=== PATIENT | male | born 1955 | race Caucasian/White ===

== ENCOUNTER 2017-08-28 13:11 | Inpatient (IN) | payer OTHER ==
[~2017-08-28] VITALS: Ht 180.3 cm; Wt 79.4 kg
--- NOTE | 2017-08-28 00:30 | NUR ---
DUE MEDICATION GIVEN, PT TOLERATED WELL, NO DISTRESS NOTED, CALL LIGHT WITHIN REACH, WILL CONTINUE TO MONITOR. Addendum: 08/29/17 at 0513 by Arleth Stewart RN WRONG DATE
[2017-08-28 13:19] VITALS: BP 156/77
--- NOTE | 2017-08-28 13:34 | NUR ---
PT PLACED IN BED 1 BY EMS.
--- NOTE | 2017-08-28 13:40 | NUR ---
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 DENIES N/V/D; SKIN IS PINK/WARM/DRY; AAOX4 WITH EVEN AND STEADY GAIT; LUNGS CLEAR BL; HR EVEN AND REGULAR; PT DENIES ANY FEVER, CP, SOB, OR COUGH AT THIS TIME; PATIENT STATES PAIN OF 5/10 AT THIS TIME; VSS; PATIENT POSITIONED FOR COMFORT; HOB ELEVATED; BEDRAILS UP X2; BED DOWN. ER MD MADE AWARE OF PT STATUS.
[2017-08-28] MEDS ORDERED: MORPHINE SULFATE 4 MG/ML SYR IVP ONE (14:30)
[2017-08-28] MEDS ORDERED: AMPICILLIN/SULBACTAM 3 GM in NACL 0.9% 100 ML IV ONE (14:30)
[2017-08-28] MEDS ORDERED: ONDANSETRON 4 MG/2 ML VIAL IVP ONE (14:50)
[2017-08-28 14:52] LABS: BASOPHILS # (AUTO) 0.1 K/uL (0.00-0.22); BASOPHILS % (AUTO) 1.1 % (0.0-2.0); EOSINOPHILS # (AUTO) 0.3 K/uL (0-0.4); EOSINOPHILS % (AUTO) 4.5 % (0.0-4.0); HEMATOCRIT 34.1 % (36-52); HEMOGLOBIN 11.7 g/dL (12.0-18.0); LYMPHOCYTES # (AUTO) 1.4 K/uL (2.0-11.5); LYMPHOCYTES % (AUTO) 18.1 % (20.5-51.1); MEAN CORPUSCULAR HEMOGLOBIN 34 pg (27-31); MEAN CORPUSCULAR HGB CONC 34 g/dL (33-37); MEAN CORPUSCULAR VOLUME 98 fL (80-94); MONOCYTES # (AUTO) 0.5 K/uL (0.8-1.0); NEUTROPHILS # (AUTO) 5.2 K/uL (1.8-7.7); NEUTROPHILS % (AUTO) 69.3 % (42.2-75.2); PLATELET COUNT (AUTO) 245 K/uL (140-450); RED BLOOD CELL COUNT(AUTO) 3.49 MIL/uL (4.20-6.10); RED CELL DISTRIBUTION WIDTH 12.2 % (11.6-13.7); WHITE BLOOD COUNT (AUTO) 7.5 K/uL (4.8-10.8)
[2017-08-28 14:56] LABS: ANION GAP 12.2 (8-16); CARBON DIOXIDE 23.6 mmol/L (21-32); CREATININE 1.5 mg/dL (0.7-1.3); POTASSIUM 3.8 mmol/L (3.5-5.1)
[2017-08-28 15:03] LABS: ALBUMIN 2.3 g/dL (3.4-5.0); TOTAL BILIRUBIN 0.4 mg/dL (0.0-1.0)
[2017-08-28] MEDS ORDERED: ONDANSETRON 4 MG/2 ML VIAL IM/IVP PRN (15:50)
[2017-08-28] MEDS ORDERED: HYDROcodone/APAP 7.5/325 MG 1 TAB PO PRN (15:50)
[2017-08-28] MEDS ORDERED: DOCUSATE SODIUM 100 MG GELCAP PO PRN (15:50)
[2017-08-28] MEDS ORDERED: ACETAMINOPHEN 325 MG TAB PO PRN (15:50)
--- NOTE | 2017-08-28 16:00 | NUR ---
PT STAYING QUIETLY IN BED. DENIES PAIN AT THIS TIME.
[2017-08-28] MEDS: NACL 0.9% 1,000 ML IV SCH (16:39)
[2017-08-28 16:59] LABS: CHOL/HDL RATIO 2.8 (1-4.5); FREE T4 (FREE THYROXINE) 0.99 ng/dL (0.76-1.46); MAGNESIUM 1.8 mg/dL (1.8-2.4); PHOSPHORUS 3.1 mg/dL (2.5-4.9); THYROID STIMULATING HORMONE 2.88 uIU/mL (0.34-3.74)
--- NOTE | 2017-08-28 18:00 | NUR ---
PT TRANSFERRED TO TELE 105B WITH STABLE VITALS.
[2017-08-28 19:30] VITALS: BP 116/76
--- NOTE | 2017-08-28 19:30 | NUR ---
RECEIVED REPORT FROM DAY SHIFT NURSE TODD RN, PT STABLE, NO DISTRESS NOTED, PT ARRIVED AT THE UNIT FROM ED AT 1817. IV TO L AC 20 G RUNNING NS, INFUSING WELL, PT ON ROOM AIR, NO SOB, REPORTED HAVING PAIN 10/10 ON LEGS, WILL MEDICATE, CALL LIGHT WITHIN REACH, INITIAL ASSESSMENT DONE, ALL SAFETY PRECAUTION MET, WILL CONTINUE TO MONITOR.
[2017-08-28] MEDS: MORPHINE SULFATE 2 MG/ML SYR IVP PRN (19:55)
[2017-08-28 21:42] LABS: PROTHROMBIN TIME 9.4 secs (10.8-13.4)
[2017-08-28] MEDS: QUEtiapine FUMARATE 25 MG TAB PO SCH (22:08)
--- NOTE | 2017-08-28 22:08 | NUR ---
DUE MEDICATION GIVEN, PT TOLERATED WELL, NO DISTRESS NOTED, WILL CONTINUE TO MONITOR.
[2017-08-28] MEDS: INSULIN LISPRO SLIDING SCALE 100 UNITS/ML VIAL SUBQ PRN (22:40)
[2017-08-29] VITALS: BP 158/79
[2017-08-29] MEDS: AMPICILLIN/SULBACTAM 3 GM in NACL 0.9% 100 ML IV SCH ×2 (00:30→05:19)
--- NOTE | 2017-08-29 00:30 | NUR ---
DUE MEDICATION GIVEN, PT TOLERATED WELL, NO DISTRESS NOTED, SLEEPING, CALL LIGHT WITHIN REACH, WILL CONTINUE TO MONITOR.
--- NOTE | 2017-08-29 03:19 | NUR ---
TALKED TO DR. DEAN REGARDING PT ECG READING OF 2ND DEGREE HEART BLOCK IRIS RIDDLE ON TELE MONITORING, PT STABLE, SLEEPING, NO DISTRESS NOTED. DR STATED UNDERSTANDING, WENT TO SEE ECG AND TELE MONITOR, SAW PT ALSO HAD AN EPISODE OF BRADYCARDIA ON TELE MONITOR. STATED THAT HE WOULD PUT IN ORDERS. WILL CONTINUE WITH ORDERS.
[2017-08-29 04:00] VITALS: BP 141/67
--- NOTE | 2017-08-29 05:19 | NUR ---
DUE MEDICATION GIVEN, PT TOLERATED WELL, NO DISTRESS NOTED, CALL LIGHT WITHIN REACH, WILL CONTINUE TO MONITOR.
[2017-08-29 06:19] LABS: T4 (THYROXINE) 6.1 ug/dL (4.5-12.0)
[2017-08-29] MEDS: BLOOD GLUCOSE MONITORING 1 DEV DEV FS SCH ×4 (06:21→20:48)
[2017-08-29 07:20] LABS: ANION GAP 12.5 (8-16); CARBON DIOXIDE 23.1 mmol/L (21-32); CREATININE 1.6 mg/dL (0.7-1.3); POTASSIUM 3.6 mmol/L (3.5-5.1)
--- NOTE | 2017-08-29 07:25 | NUR ---
ENDORSED PLAN OF CARE TO DAY SHIFT NURSE MIGUEL A RN, PT STABLE, NO DISTRESS NOTED, CALL LIGHT WITHIN REACH.
--- NOTE | 2017-08-29 07:30 | NUR ---
RECEIVED PT ON BED AAOX4. NO SOB NOTED. NO C/O PAIN AT THIS TIME. IV TO LT AC PATENT AND INTACT. CHEST CLEAR, ABDOMEN SOFT, BOWEL SOUNDS PRESENT. PT WITH HX OF BILATERAL BKA, DX OF BLE CELLULITIS, NOTED ALL WOUNDS OF DIFFERENT SIZES ON BILATERAL LOWER EXTREMITY ARE DRY. ALL BLISTERS ARE NOTED INTACT, NO DRAINAGE. LEFTY LEG PROSTHESIS NOT WORN BY PT. RIGHT LEG PROSTHESIS IS IN PLACE. PER HOSTEL MANAGER, SOMEBODY FROM PT'S PROSTHESIS COMPANY IS COMING TODAY TO REMOVE THE RT PROSTHESIS PT AND DOCTORS WERE UNABLE TO REMOVE IT. INSTRUCTED PT TO CALL FOR ASSISTANCE, CALL LIGHT WITHIN REACH. PT VERBALIZED UNDERSTANDING.
[2017-08-29 08:00] VITALS: BP 152/81
[2017-08-29 08:39] LABS: HEMATOCRIT 33.2 % (36-52); HEMOGLOBIN 11.3 g/dL (12.0-18.0); RED BLOOD CELL COUNT(AUTO) 3.34 MIL/uL (4.20-6.10); WHITE BLOOD COUNT (AUTO) 6.5 K/uL (4.8-10.8)
[2017-08-29 08:40] LABS: BASOPHILS % (AUTO) 0.5 % (0.0-2.0); EOSINOPHILS # (AUTO) 0.3 K/uL (0-0.4); EOSINOPHILS % (AUTO) 5.3 % (0.0-4.0); LYMPHOCYTES # (AUTO) 1.4 K/uL (2.0-11.5); LYMPHOCYTES % (AUTO) 22.1 % (20.5-51.1); MEAN CORPUSCULAR HEMOGLOBIN 34 pg (27-31); MEAN CORPUSCULAR HGB CONC 34 g/dL (33-37); MEAN CORPUSCULAR VOLUME 99 fL (80-94); MONOCYTES # (AUTO) 0.4 K/uL (0.8-1.0); MONOCYTES % (AUTO) 6.4 % (1.7-9.3); NEUTROPHILS # (AUTO) 4.3 K/uL (1.8-7.7); NEUTROPHILS % (AUTO) 65.7 % (42.2-75.2); PLATELET COUNT (AUTO) 244 K/uL (140-450); RED CELL DISTRIBUTION WIDTH 13.1 % (11.6-13.7)
[2017-08-29] MEDS: NACL 0.9% 1,000 ML IV SCH (08:44)
[2017-08-29] MEDS: amLODIPine 5 MG TAB PO SCH (08:44)
[2017-08-29] MEDS: QUEtiapine FUMARATE 25 MG TAB PO SCH ×2 (08:45→20:49)
[2017-08-29] MEDS: MORPHINE SULFATE 2 MG/ML SYR IVP PRN ×5 (08:45→21:55)
[2017-08-29] MEDS: LACTOBACILLUS RHAMNOSUS GG 1 EACH CAP PO SCH (08:45)
--- NOTE | 2017-08-29 08:50 | NUR ---
PATIENT HAS BEEN SCREENED AND CATEGORIZED MODERATE NUTRITION RISK. PATIENT WILL BE SEEN WITHIN 3-5 DAYS OF ADMISSION. 08/30/17-09/01/[address]
[2017-08-29] MEDS ORDERED: LACTOBACILLUS RHAMNOSUS GG 1 EACH CAP PO SCH (09:00)
--- NOTE | 2017-08-29 10:00 | NUR ---
SONIA FROM [employer] [employer] ([phone]) CAME TO REMOVE PT'S RT LEG PROSTHESIS. PT TOLERATED PROCEDURE WELL. NO COMPLAINTS MADE. NO BLEEDING, NO DRAINAGE NOTED ON RT STUMP.
[2017-08-29 12:00] VITALS: BP 129/71
[2017-08-29] MEDS: CLINDAMYCIN 600 MG in DEXTROSE 5% 50 ML IV SCH ×3 (13:12→23:59)
[2017-08-29] MEDS: INSULIN LISPRO SLIDING SCALE 100 UNITS/ML VIAL SUBQ PRN (13:13)
--- NOTE | 2017-08-29 13:39 | NUR ---
NOTED ALL WOUNDS OF DIFFERENT SIZES ON BILATERAL LOWER EXTREMITY ARE DRY. PT TRIED TO SQUEEZE RT KNEE WOUND, VERY SMALL AMOUNT OF CLEAR DRAINAGE NOTED, SWABS TAKEN FOR CULTURE. ALL BLISTERS ARE STILL INTACT, NO DRAINAGE NOTED. CULTURE SWAB TAKEN FROM RT KNEE WOUND AND SENT TO LAB.
--- NOTE | 2017-08-29 15:00 | NUR ---
URINE SPECIMEN COLLECTED AND SENT TO LAB FOR UDS.
--- NOTE | 2017-08-29 16:00 | NUR ---
WOUND CARE NURSE HERE TO EVALUATE PT.
--- NOTE | 2017-08-29 16:19 | NUR ---
WOUND EVALUATION NOTE: REASON FOR WOUND EVALUATION: BLE BKA SKIN TEARS PT. REFUSED COMPLETE SKIN ASSESSMENT , ONLY WANTS THE LEGS/THIGHS TO BE SEEN. PT IS A 61 Y/O MALE ADMITTED TO [facility] WITH INITIAL DX OF LEGS PAIN. PAST MEDICAL HX INCLUDES DM, HTN, BI-POLAR AND BL BKA. LABS ARE WBC 6.5, H/H 11.2/33.2 AND GLUCOSE 226. PLAN OF CARE DISCUSSED WITH PT AND PRIMARY RN. PT. VERBALIZES UNDERSTAND. INTEGUMENTARY: BILATERAL THIGHS MULTIPLE DRY SKIN TEARS WITH BIGGEST ON RIGHT THIGH WITH 3.5X3CM AREA IS RED AND DRY LEFT STUMP DRY SOFT BROWN SCAB 3X1 CM WITH SURROUNDING TISSUE DARK BROWN IN COLOR RIGHT STUMP 2X1.5 CM RED IN COLOR, AREA IS DRY. RECOMMENDATIONS: -SURGEON CONSULT TO BILATERAL STUMPS -CLEANSE BILATERAL THIGHS DRY SKIN TEARS WITH NS. PAT DRY, APPLY XEROFORM DRESSING WRAP WITH KERLIX AND GREY BANDAGE Q7 DAYS AND PRN. -TURN AND REPOSITION PATIENT Q2H -ASSESS AND MONITOR SKIN CONDITION DURING POSITION CHANGE, PLEASE PAY ATTENTION TO BILATERAL STUMPS -KEEP SKIN CLEAN AND DRY AT ALL TIMES. -CONTINUE TO FOLLOW RD RECOMMENDATION RECOMMENDATIONS DISCUSSED WITH PRIMARY RN AND DR. ABEBE WILL FOLLOW UP PATIENT Q 7-10 DAYS AND PRN. PLEASE CONTACT WOUND CARE NURSE FOR ANY QUESTIONS AND CHANGES IN WOUND CONDITION.
[2017-08-29 17:26] LABS: BARBITURATE, URINE POS. ng/ml (NEG <=200); CANNABINOID, URINE NEG. ng/mL (NEG <=50); COCAINE, URINE NEG. ng/mL (NEG <=300); OPIATE, URINE POS. ng/mL (NEG <=2000); PHENCYCLIDINE SCREEN,URINE NEG. ng/mL (NEG <=25)
[2017-08-29 17:34] LABS: BENZODIAZEPINE, URINE NEG. ng/mL (NEG <=200)
[2017-08-29 17:56] LABS: APPEARANCE,URINE CLEAR (CLEAR); BILIRUBIN,URINE NEGATIVE (NEGATIVE); BLOOD, URINE TRACE-L (NEGATIVE); COLOR,URINE YELLOW (YELLOW); LEUKOCYTE ESTERASE ,URINE NEGATIVE (NEGATIVE); NITRITE, URINE NEGATIVE (NEGATIVE); UGLUCOSE 1+ (NEGATIVE)
[2017-08-29 18:29] LABS: RBC,URINE 0-5 (RARE) /HPF (0-5); WBC,URINE 0-5 (RARE) /HPF (0-5)
--- NOTE | 2017-08-29 18:57 | NUR ---
PT AWAKE, WATCHING TV. NO SOB NOTED. NO C/O PAIN AT THIS TIME. WILL ENDORSE TO NEXT SHIFT NURSE FOR CONTINUITY OF CARE.
--- NOTE | 2017-08-29 19:05 | NUR ---
RECD. RESTING IN BED, AWAKE, A/OX4. RESPIRATION EVEN AND UNLABORED, OF NS AT 60 ML/HR INFUSING, RIGHT AC G20. BILATERAL BKA, BOTH LEGS COVERED WITH KERLIX DRSG. DRY AND INTACT, LEFT BKA STUMP WITH DRY DRESSING, NOTED BLISTERS ON BILATERAL LE. SAFETY MEASURES ENFORCED. PLAN OF CARE FOR THE SHIFT DISCUSSED. VERBALIZED UNDERSTANDING. DENIES PAIN 0/10.
--- NOTE | 2017-08-29 19:30 | NUR ---
Patient's Plan of Care was discussed and reviewed with FLASK CARRIER: ED
--- NOTE | 2017-08-29 19:30 | NUR ---
LOTION APPLIED ON LOWER BACK X2 REQUESTED.
--- NOTE | 2017-08-29 20:49 | NUR ---
DUE PO MEDICATION GIVEN. SNACK GIVEN FOR THE NIGHT. CALLS FREQUENTLY, LIGHT PROMPTLY ANSWERED.
--- NOTE | 2017-08-29 22:30 | NUR ---
INFORMED DR. YUN PATIENT IS REQUESTING FOR BENADRYL FOR ITCHINESS, INFORMED MERCHANDISE BUYER AND NURSE APPLIED LOTION IN THE BACK AND STILL WANTING BENADRYL FOR ITCHINESS.
[2017-08-29] MEDS ORDERED: diphenhydrAMINE 50 MG CAP PO SCH (22:45)
--- NOTE | 2017-08-29 23:09 | NUR ---
STATED STILL WITH ITCHINESS, MEDICATED WITH BENADRYL 50 MG. PO ORDERED.
--- NOTE | 2017-08-29 23:45 | NUR ---
ASSISTED TO BR TO HAVE BM, APPLIED PROSTHESIS HIMSELF. ABLE TO HAVE MEDIUM SOFT BM. BACK TO BED, SAFETY MAINTAINED. STENCILER ASSISTED IN CLEANING PATIENT. APPLIED LOTION AT THE BACK REQUESTED.
--- NOTE | 2017-08-30 00:15 | NUR ---
KEEP ON CALLING, WANTS MORE BENADRYL, HOWARD TREVINO PUT LOTION AT THE BACK REQUESTED.
--- NOTE | 2017-08-30 00:25 | NUR ---
DR. JAVED CAME TO PATIENT'S ROOM AND SPOKE WITH PATIENT, WILL FOLLOW UP WITH ANY NEW ORDER.
[2017-08-30] MEDS: NACL 0.9% 1,000 ML IV SCH ×3 (01:07→22:54)
[2017-08-30 05:19] VITALS: BP 161/77
[2017-08-30] MEDS: MORPHINE SULFATE 2 MG/ML SYR IVP PRN ×3 (05:31→20:58)
--- NOTE | 2017-08-30 06:00 | NUR ---
CONDITION REMAIN STABLE. CALL LIGHTS PROMPTLY ANSWERED. STILL EXPRESS NOT SATISFIED WITH THE HELP HE IS GETTING FROM THE NURSES AND COURTROOM DEPUTY OR CALENDAR CLERK.
[2017-08-30 06:26] LABS: BASOPHILS # (AUTO) 0.1 K/uL (0.00-0.22); BASOPHILS % (AUTO) 0.8 % (0.0-2.0); EOSINOPHILS # (AUTO) 0.5 K/uL (0-0.4); HEMATOCRIT 32.7 % (36-52); LYMPHOCYTES # (AUTO) 1.2 K/uL (2.0-11.5); LYMPHOCYTES % (AUTO) 16.3 % (20.5-51.1); MEAN CORPUSCULAR HEMOGLOBIN 34 pg (27-31); MEAN CORPUSCULAR HGB CONC 34 g/dL (33-37); MEAN CORPUSCULAR VOLUME 100 fL (80-94); MONOCYTES # (AUTO) 0.5 K/uL (0.8-1.0); MONOCYTES % (AUTO) 6.3 % (1.7-9.3); NEUTROPHILS # (AUTO) 5.4 K/uL (1.8-7.7); NEUTROPHILS % (AUTO) 70.6 % (42.2-75.2); PLATELET COUNT (AUTO) 248 K/uL (140-450); RED BLOOD CELL COUNT(AUTO) 3.27 MIL/uL (4.20-6.10); RED CELL DISTRIBUTION WIDTH 12.3 % (11.6-13.7); WHITE BLOOD COUNT (AUTO) 7.7 K/uL (4.8-10.8)
[2017-08-30] MEDS: CLINDAMYCIN 600 MG in DEXTROSE 5% 50 ML IV SCH ×3 (06:26→18:22)
[2017-08-30 06:38] LABS: ANION GAP 11.7 (8-16); CARBON DIOXIDE 25.4 mmol/L (21-32); CREATININE 1.8 mg/dL (0.7-1.3); POTASSIUM 4.1 mmol/L (3.5-5.1)
[2017-08-30 06:43] LABS: MAGNESIUM 1.8 mg/dL (1.8-2.4); PHOSPHORUS 4.1 mg/dL (2.5-4.9)
--- NOTE | 2017-08-30 07:00 | NUR ---
CONDITION REMAIN STABLE. WILL ENDORSED TO AM NURSE FOR CONTINUITY OF CARE.
--- NOTE | 2017-08-30 07:01 | NUR ---
RECEIVED REPORT FROM GREENKEEPER NURSE. PATIENT WITH IV TO LFA 20G NS RUNNING AT 60ML/HR. PATIENT ON CONTACT ISOLATION FOR MRSA PER GREENKEEPER NURSE. PATIENT WITH BILAT BKA . DRESSINGS INTACT. NO C/O PAIN AT THIS TIME. NO ACUTE DISTRESS NOTED. WILL CONT TO MONITOR PT.
[2017-08-30] MEDS: BLOOD GLUCOSE MONITORING 1 DEV DEV FS SCH ×4 (07:08→20:59)
[2017-08-30] MEDS: LACTOBACILLUS RHAMNOSUS GG 1 EACH CAP PO SCH (08:41)
[2017-08-30] MEDS: QUEtiapine FUMARATE 25 MG TAB PO SCH ×2 (08:41→20:57)
[2017-08-30] MEDS: amLODIPine 5 MG TAB PO SCH (08:42)
--- NOTE | 2017-08-30 08:43 | NUR ---
ADMINISTERED SCHEDULED MORNING MEDICATIONS MORPHINE GIVEN FOR SEVERE PAIN. PATIENT ALERT AND ABLE TO VERBALIZE NEEDS. NO ACUTE DISTRESS NOTED. CALL LIGHT WITHIN REACH. WILL CONT TO MONITOR PT.
[2017-08-30] MEDS: HYDROCORTISONE 2.5% OINT 30 GM TUBE TP SCH ×2 (08:50→21:00)
[2017-08-30] MEDS ORDERED: ESCITALOPRAM 20 MG TAB PO SCH (09:14)
[2017-08-30] MEDS ORDERED: HYDROCHLOROTHIAZIDE 25 MG TAB PO SCH (09:17)
--- NOTE | 2017-08-30 09:57 | NUR ---
ADMINISTERED HCTZ AND LEXAPRO ORDERED PER MD . PT TOLERATED WELL. CALL LIGHT WITHIN REACH. WILL CONT TO MONITOR PT.
--- NOTE | 2017-08-30 10:46 | NUR ---
PT REQUESTED 2 PUDDINGS. UNABLE TO OPEN THE PACKAGE. NEEDED ASSISTANCE. ADMINISTERED A NEW IVF. TOLERATED WELL. MET ALL NEEDS AT THIS TIME. WILL CONTINUE TO MONITOR PT.
[2017-08-30] MEDS: INSULIN LISPRO SLIDING SCALE 100 UNITS/ML VIAL SUBQ PRN ×2 (11:52→16:46)
--- NOTE | 2017-08-30 12:46 | NUR ---
PT IN BED EATING MEAL. ALERT AND ABLE TO MAKE NEEDS KNOWN. NO ACUTE DISTRESS NOTED. NO C/O PAIN. CALL LIGHT WITHIN REACH. WILL CONT TO MONITOR PT.
--- NOTE | 2017-08-30 14:52 | NUR ---
PT LINENS CHANGED. PT WAS USING URINAL AND SOILED LINEN. GOOD PERICARE PROVIDED. PT CLEAN AND DRY IN BED WATCHING TV.
[2017-08-30 16:00] VITALS: BP 122/71
--- NOTE | 2017-08-30 16:06 | NUR ---
PT SLEEPING SOUNDLY. NO SIGNS OF DISTRESS. WILL CONTINUE TO MONITOR PT.
--- NOTE | 2017-08-30 19:20 | NUR ---
ENDORSED REPORT TO CHEMICAL PROCESSING TECHNICIAN NURSE FOR CONTINUITY OF CARE AT BEDSIDE.
--- NOTE | 2017-08-30 19:21 | NUR ---
PATIENT REPORT RECEIVED FROM MORNING NURSE AT BEDSIDE. PATIENT IS AWAKE, ALERT AND ORIENTED. NO SIGNS AND SYMPTOMS OF DISTRESS NOTED. PATIENT HAS BILATERAL BKA, DRESSINGS ARE DRY AND INTACT. IVF SITE NOTED ON LEFT ARM, IVF INFUSING WELL. BED IN LOWEST POSITION, SIDE RAILS UP AND CALL LIGHT WITHIN REACH. WILL CONTINUE TO MONITOR.
--- NOTE | 2017-08-30 22:00 | NUR ---
CHECKED ON PATIENT. PATIENT IS ASLEEP. NO SIGNS AND SYMPTOMS OF DISTRESS NOTED, BREATHING EVEN AND UNLABORED. WILL CONTINUE TO MONITOR.
[2017-08-31] MEDS: CLINDAMYCIN 600 MG in DEXTROSE 5% 50 ML IV SCH ×4 (00:23→17:20)
[2017-08-31] MEDS: MORPHINE SULFATE 2 MG/ML SYR IVP PRN (01:29)
--- NOTE | 2017-08-31 03:00 | NUR ---
CHECKED ON PATIENT. PATIENT IS ASLEEP. NO SIGNS AND SYMPTOMS OF DISTRESS NOTED, BREATHING EVEN AND UNLABORED. WILL CONTINUE TO MONITOR.
[2017-08-31 06:00] VITALS: BP 145/70
[2017-08-31] MEDS: INSULIN LISPRO SLIDING SCALE 100 UNITS/ML VIAL SUBQ PRN ×2 (06:35→16:41)
[2017-08-31] MEDS: BLOOD GLUCOSE MONITORING 1 DEV DEV FS SCH ×4 (06:35→20:50)
--- NOTE | 2017-08-31 07:15 | NUR ---
PATIENT REPORT GIVEN TO MORNING NURSE AT BEDSIDE. PATIENT IS IN STABLE CONDITION.
--- NOTE | 2017-08-31 07:16 | NUR ---
RECEIVED REPORT FROM THE MICA PLATE LAYER NURSE. PT IS AWAKE AND ORIENTED. WASHING UP. REINTRODUCED MYSELF AND UPDATED THE BOARD. PT HAS L AC 20G NS 110ML. V/S WITHIN NORMAL RANGE. BP SLIGHTLY HIGH. LBM 2/15. DENIES ANY PAIN AT THIS TIME. WAITING FOR BREAKFAST. WILL CONTINUE TO MONITOR PT.
--- NOTE | 2017-08-31 07:45 | NUR ---
REGINO AMAYA. TO SEE PT.
[2017-08-31 08:00] VITALS: BP 153/63
[2017-08-31] MEDS: NACL 0.9% 1,000 ML IV SCH ×2 (08:29→17:06)
[2017-08-31] MEDS: amLODIPine 5 MG TAB PO SCH (08:30)
[2017-08-31] MEDS: LACTOBACILLUS RHAMNOSUS GG 1 EACH CAP PO SCH (08:30)
[2017-08-31] MEDS: ESCITALOPRAM 20 MG TAB PO SCH (08:30)
[2017-08-31] MEDS: HYDROCHLOROTHIAZIDE 25 MG TAB PO SCH (08:31)
[2017-08-31] MEDS: QUEtiapine FUMARATE 25 MG TAB PO SCH (08:31)
[2017-08-31] MEDS: HYDROCORTISONE 2.5% CRM 30 GM TUBE TP SCH ×2 (08:46→20:47)
--- NOTE | 2017-08-31 10:44 | NUR ---
WOULD LIKE A SNACK, HUNGRY. GAVE PT CHICKEN SALAD SANDWICH AND JUICE, AND PUDDING. WILL CONTINUE TO MONITOR PT.
--- NOTE | 2017-08-31 12:20 | NUR ---
RESTARTED IV ACCESS. GOT PULLED OUT EARLIER. L WRIST 22G. PT TOLERATED WELL. 2 ATTEMPTS. INFUSING WELL. ABX ADMINISTERED. WILL CONTINUE TO MONITOR PT.
--- NOTE | 2017-08-31 13:13 | NUR ---
ADMINISTERED MORPHINE 2MG THIS MORNING AT 0830. FOR SOME REASON, IT DIDN'T GET SAVED. CALLED THE RX AND SPOKE WITH THE PHARMACIST. PER PHARMACIST, GO AHEAD AND DOCUMENT IN A NOTE. NOTED.
[2017-08-31] MEDS: MORPHINE SULFATE 4 MG/ML SYR IVP PRN ×2 (13:19→16:37)
--- NOTE | 2017-08-31 14:54 | NUR ---
AMBULATED TO THE BATHROOM WITH HELP OF SIVA ZALDIVAR. PT IS BACK IN BED. WONDERING WHEN THE ORTHO WILL BE HERE. WILL CONTINUE TO MONITOR PT.
[2017-08-31] MEDS: MUPIROCIN 2% OINT 22 GM TUBE TP SCH (15:08)
[2017-08-31] MEDS: CHLORHEXADINE GLUC 2% CLOTH TP SCH (15:08)
[2017-08-31 16:00] VITALS: BP 133/68
--- NOTE | 2017-08-31 18:00 | NUR ---
PSYCHIATRIST CONSULT HERE.
--- NOTE | 2017-08-31 19:19 | NUR ---
ENDORSED PT TO THE AGRICULTURAL PLOW OPERATOR NURSE AT BEDSIDE FOR CONTINUITY OF CARE. PT IS IN STABLE CONDITION.
--- NOTE | 2017-08-31 19:20 | NUR ---
RECEIVED REPORT FROM DAY SHIFT NURSE. PT IS A/OX4, ON ROOM AIR. 22G IV TO LEFT WRIST INFUSING NS@110ML/HR. PT HAD BILATERAL BELOW THE KNEES AMPUTATION. PT HAS CELLULITIS ON STUMPS AND THEY ARE WRAPPED CLEAN AND INTACT. UPDATED BOARD. VITAL SIGNS WITHIN NORMAL LIMITS. PT IN STABLE CONDITION, NO SIGNS OF DISTRESS NOTED. BED IN LOWEST POSITION, CALL LIGHT WITHIN REACH. WILL CONTINUE TO MONITOR.
[2017-08-31] MEDS: QUEtiapine FUMARATE 100 MG TAB PO SCH (20:46)
--- NOTE | 2017-08-31 20:55 | NUR ---
ADMINISTERED SCHEDULED MEDICATIONS, PT TOLERATED WELL. PT STABLE NO SIGNS OF DISTRESS NOTED. BED IN LOWEST POSITION CALL LIGHT WITHIN REACH. WILL CONTINUE TO MONITOR.
--- NOTE | 2017-08-31 22:55 | NUR ---
STARTED NEW IV ON PT, 24 GAUGE ON RIGHT UPPER ARM. PT TOLERATED WELL. REMOVED THE ONE ON THE LEFT WRIST CANNULA CAME OUT INTACT, HELD PRESSURE UNTIL BLEEDING STOPPED.
--- NOTE | 2017-09-01 | NUR ---
VITAL SIGNS WITHIN NORMAL LIMITS. PT IN STABLE CONDITION, NO SIGNS OF DISTRESS NOTED. BED IN LOWEST POSITION, CALL LIGHT WITHIN REACH. WILL CONTINUE TO MONITOR.
[2017-09-01 00:37] VITALS: BP 131/65
[2017-09-01] MEDS: CLINDAMYCIN 600 MG in DEXTROSE 5% 50 ML IV SCH ×5 (00:43→23:56)
--- NOTE | 2017-09-01 02:30 | NUR ---
PT IN STABLE CONDITION, NO SIGNS OF DISTRESS NOTED. BED IN LOWEST POSITION, CALL LIGHT WITHIN REACH. WILL CONTINUE TO MONITOR.
[2017-09-01] MEDS: NACL 0.9% 1,000 ML IV SCH ×3 (02:58→17:40)
--- NOTE | 2017-09-01 05:32 | NUR ---
PT IN STABLE CONDITION, NO SIGNS OF DISTRESS NOTED. BED IN LOWEST POSITION, CALL LIGHT WITHIN REACH. WILL CONTINUE TO MONITOR.
[2017-09-01] MEDS: MORPHINE SULFATE 4 MG/ML SYR IVP PRN ×4 (06:10→18:54)
--- NOTE | 2017-09-01 06:10 | NUR ---
PT COMPLAINED OF 8/10 PAIN BELOW KNEES BILATERALLY, ADMINISTERED MORPHINE PER ORDER. PT TOLERATED WELL, WILL REASSESS FOR MEDICATION EFFECTIVENESS.
[2017-09-01] MEDS: BLOOD GLUCOSE MONITORING 1 DEV DEV FS SCH ×4 (06:14→20:53)
[2017-09-01 07:21] LABS: BASOPHILS # (AUTO) 0.1 K/uL (0.00-0.22); BASOPHILS % (AUTO) 0.7 % (0.0-2.0); EOSINOPHILS # (AUTO) 0.1 K/uL (0-0.4); EOSINOPHILS % (AUTO) 0.6 % (0.0-4.0); HEMATOCRIT 33.2 % (36-52); HEMOGLOBIN 11.3 g/dL (12.0-18.0); LYMPHOCYTES # (AUTO) 0.9 K/uL (2.0-11.5); LYMPHOCYTES % (AUTO) 7.5 % (20.5-51.1); MEAN CORPUSCULAR HEMOGLOBIN 34 pg (27-31); MEAN CORPUSCULAR HGB CONC 34 g/dL (33-37); MEAN CORPUSCULAR VOLUME 100 fL (80-94); MONOCYTES # (AUTO) 0.2 K/uL (0.8-1.0); MONOCYTES % (AUTO) 1.9 % (1.7-9.3); NEUTROPHILS # (AUTO) 10.7 K/uL (1.8-7.7); NEUTROPHILS % (AUTO) 89.3 % (42.2-75.2); PLATELET COUNT (AUTO) 216 K/uL (140-450); RED BLOOD CELL COUNT(AUTO) 3.33 MIL/uL (4.20-6.10); RED CELL DISTRIBUTION WIDTH 12.1 % (11.6-13.7)
--- NOTE | 2017-09-01 07:30 | NUR ---
RECEIVED REPORT FROM MOLECULAR SPECTROSCOPIST NURSE. PT IS AAOX4, NO S/S OF DISTRESS NOTED ON ROOM AIR. DENIES PAIN AT THIS TIME. IV 24G NOTED TO LEFT UPPER ARM, PATENT INTACT AND INFUSING WELL. PT HAD BILATERAL BELOW THE KNEES AMPUTATION. PT HAS CELLULITIS ON STUMPS AND THEY ARE WRAPPED CLEAN AND INTACT. BED IN LOWEST POSITION, CALL LIGHT WITHIN REACH. WILL CONTINUE TO MONITOR.
--- NOTE | 2017-09-01 07:35 | NUR ---
ENDORSED PT IN STABLE CONDITION TO DAY SHIFT NURSE FOR CONTINUITY OF CARE.
[2017-09-01 07:50] LABS: CREATININE 1.6 mg/dL (0.7-1.3)
[2017-09-01 08:00] VITALS: BP 115/66
[2017-09-01 08:30] LABS: MAGNESIUM 1.9 mg/dL (1.8-2.4); PHOSPHORUS 4.1 mg/dL (2.5-4.9)
[2017-09-01] MEDS: ESCITALOPRAM 20 MG TAB PO SCH (08:57)
--- NOTE | 2017-09-01 09:00 | NUR ---
HYDROCORTISONE CREAM APPLIED TO BUTTOCK.
[2017-09-01] MEDS: amLODIPine 5 MG TAB PO SCH (09:02)
[2017-09-01] MEDS: HYDROCHLOROTHIAZIDE 25 MG TAB PO SCH (09:03)
[2017-09-01] MEDS: LACTOBACILLUS RHAMNOSUS GG 1 EACH CAP PO SCH (09:31)
[2017-09-01] MEDS: HYDROCORTISONE 2.5% CRM 30 GM TUBE TP SCH ×2 (09:31→20:41)
[2017-09-01] MEDS: QUEtiapine FUMARATE 100 MG TAB PO SCH ×2 (09:32→20:38)
--- NOTE | 2017-09-01 10:00 | NUR ---
SPONGE BATH PROVIDED TO THE PT. CHANGED LINENS AND GOWNS.
[2017-09-01] MEDS ORDERED: glipiZIDE 5 MG TAB PO SCH (10:05)
--- NOTE | 2017-09-01 10:20 | NUR ---
DR JUSTICE HAS SEEN THE PT AND DISCUSSED PLAN OF CARE WITH PT. PT VERBALIZED UNDERSTANDING.
--- NOTE | 2017-09-01 11:05 | NUR ---
GLIPIZIDE 5MG BARCODE DID NOT SCAN. MANUALLY ENTERED.
--- NOTE | 2017-09-01 11:30 | NUR ---
NEW IV INSERTED IN THE LEFT FA 22G, 1 ATTEMPT, PT TOLERATED WELL. RIGHT UPPER ARM IV NOT INFUSING WELL. CATH DC'ED 24 G, TIP INTACT. PRESSURE APPLIED.
[2017-09-01] MEDS: MUPIROCIN 2% OINT 22 GM TUBE TP SCH (13:22)
[2017-09-01] MEDS: CHLORHEXADINE GLUC 2% CLOTH TP SCH (13:22)
--- NOTE | 2017-09-01 15:52 | NUR ---
09/01/17 RD INITIAL ASSESSMENT COMPLETED PLEASE REFER TO NUTRITION ASSESSMENT UNDER CARE ACTIVITY FOR ESTIMATED NUTRITIONAL NEEDS. RD RECOMMENDATIONS: 1- RECOMMEND CONTINUE CONSISTENT CARBOHYDRATE 60G CCHO DIET 2- PT WILL BENEFIT FROM LOW SODIUM DIET (HX OF HTN); CONSIDER 60G CCHO 2G NA DIET 3- EDUCATE PT ON DIET 4- F/U 3-5 DAYS; MODERATE RISK. RITA BEJARANO MBA, RD
[2017-09-01 16:00] VITALS: BP 103/54
--- NOTE | 2017-09-01 19:30 | NUR ---
ENDORSED PT IN STABLE CONDITION TO SAFETY GROOVING MACHINE OPERATOR NURSE FOR CONTINUITY OF CARE. SAFETY GROOVING MACHINE OPERATOR WILL DO PAIN REASSESSMENT.
--- NOTE | 2017-09-01 19:35 | NUR ---
PATIENT IS CURRENTLY RESTING IN BED AWAKE ALERT ORIENTED.PATIENT FAMILY MEMBER HIS SISTER CAME AND WANTS TO TALK TO RESIDENT ABOUT HER BROTHERS PLAN OF CARE AND IS UPSET THAT PATIENT HASN'T BEEN SEEN BY MD HUITRON YET. I CALLED RESIDENT SHIV AND INFORMED HIM THAT PATIENT'S FAMILY WANT TO TALK TO HIM. RESIDENT STATES,"I WILL TALK TO THEM IN ABOUT 30 MINUTES." I INFORMED THE SISTER THAT RESIDENT SAID HE WILL COME AND TALK TO THEM IN ABOUT 30MINUTES BUT THEN SISTER SAID,"NO, I CAN'T WAIT THAT LONG I WILL HAVE TO COME AGAIN IN THE MORNING IM NOT STAYING ANY LONGER IM VERY TIRED."
[2017-09-01 20:00] VITALS: BP 104/56
--- NOTE | 2017-09-01 20:41 | NUR ---
HYDROCORTISONE CREAM WAS APPLIED ORDERED. WILL CONTINUE TO MONITOR. PATIENT EDUCATED TO TURN AND REPOSITION SELF IN BED.
--- NOTE | 2017-09-01 21:00 | NUR ---
PATIENT WAS GIVEN HIS HS SNACK.
--- NOTE | 2017-09-01 23:23 | NUR ---
Patient's Plan of Care was discussed and reviewed with RUGBY LEAGUE FOOTBALLER: CARLITOS TARANGO
--- NOTE | 2017-09-01 23:30 | NUR ---
PATIENT REQUESTED TO HAVE A HOT TEA AND IT WAS GIVEN TO THE PATIENT.
--- NOTE | 2017-09-02 00:12 | NUR ---
PATIENT NEEDS CONTINUE TO BE MET. PATIENT WANTS ME TO APPLY HYDROCORTISONE CREAM I EXPLAINED TO THE PATIENT THAT ITS ONLY GIVEN TWICE A DAY. PATIENT STATES I REALLY NEED IT SO I APPLIED A LITTLE MORE HYDROCORTISONE CREAM. PATIENT URINAL HAS BEEN EMPTIED AND PATIENT REPEATEDLY ASKING FOR MARLENA CRACKERS AND SANDWICHES AND OTHER SNACKS I EDUCATED THE PATIENT ON THE IMPORTANCE TO FOLLOW THE DIET RECOMMENDED SO HIS BLOOD SUGAR IS MAINTAINED WITHIN NORMAL LIMITS. PATIENT VERBALIZES UNDERSTANDING FOR NOW.WILL CONTINUE TO MONITOR CALL LIGHT WITHIN REACH.
--- NOTE | 2017-09-02 00:30 | NUR ---
PATIENT TURNED AND REPOSITIONED CLEAN UNDERNEATH PADS PLACED UNDERNEATH PATIENT. PATIENT NEEDS MET WILL CONTINUE TO MONITOR.
--- NOTE | 2017-09-02 02:10 | NUR ---
HOWARD ZAZUETA INFORMED ME THAT PATIENT WANTS TO SMOKE AND IS HOLDING A CIGARETTE. I WENT TO SEE THE PATIENT AND EXPLAINED TO HIM THAT HE CANNOT SMOKE PATIENT BECAME UPSET AND BROKE HIS CIGARETTE IN HALF AND PATIENT STATES,"I WILL SMOKE TOMORROW WHEN IM DISCHARGED." PATIENT APOLOGIZED BUT PATIENT IS VERY ABUSIVE WITH BARREL PLANER AND NURSES.
[2017-09-02] MEDS: NACL 0.9% 1,000 ML IV SCH ×3 (02:12→17:36)
[2017-09-02 02:30] VITALS: BP 170/78
[2017-09-02] MEDS: MORPHINE SULFATE 4 MG/ML SYR IVP PRN ×5 (02:34→18:40)
--- NOTE | 2017-09-02 05:20 | NUR ---
PATIENT CLEANED BY MANUFACTURING COORDINATOR LIBERTY AND MANUFACTURING COORDINATOR CHIP NEEDS CONTINUE TO BE MET. CALL LIGHT WITHIN REACH.
[2017-09-02] MEDS: CLINDAMYCIN 600 MG in DEXTROSE 5% 50 ML IV SCH (05:38)
[2017-09-02] MEDS: BLOOD GLUCOSE MONITORING 1 DEV DEV FS SCH ×3 (07:24→16:30)
[2017-09-02 07:29] LABS: BASOPHILS % (AUTO) 0.8 % (0.0-2.0); EOSINOPHILS # (AUTO) 0.3 K/uL (0-0.4); EOSINOPHILS % (AUTO) 4.8 % (0.0-4.0); HEMATOCRIT 32.6 % (36-52); HEMOGLOBIN 11.1 g/dL (12.0-18.0); LYMPHOCYTES # (AUTO) 1.3 K/uL (2.0-11.5); LYMPHOCYTES % (AUTO) 21.9 % (20.5-51.1); MEAN CORPUSCULAR HEMOGLOBIN 34 pg (27-31); MEAN CORPUSCULAR HGB CONC 34 g/dL (33-37); MEAN CORPUSCULAR VOLUME 99 fL (80-94); MONOCYTES # (AUTO) 0.3 K/uL (0.8-1.0); MONOCYTES % (AUTO) 5.3 % (1.7-9.3); NEUTROPHILS # (AUTO) 4.1 K/uL (1.8-7.7); NEUTROPHILS % (AUTO) 67.2 % (42.2-75.2); PLATELET COUNT (AUTO) 231 K/uL (140-450); RED BLOOD CELL COUNT(AUTO) 3.28 MIL/uL (4.20-6.10); RED CELL DISTRIBUTION WIDTH 12.4 % (11.6-13.7)
[2017-09-02] MEDS ORDERED: glipiZIDE 5 MG TAB PO SCH (07:30)
--- NOTE | 2017-09-02 07:38 | NUR ---
PATIENT STABLE RESTING IN BED ENDORSE TO AM SHIFT NURSE THAT PATIENT REFUSED HIS GLUCOTROL PATIENT STATES,"I WANT MY PAIN MEDICATION FIRST AND THEN I WILL TAKE MY PILLS BUT NOT UNTIL I GET MY PAIN MEDICATION." AM NURSED WILL FOLLOW UP.
--- NOTE | 2017-09-02 07:45 | NUR ---
RECEIVED REPORT FROM MEDICAL FRONT DESK COORDINATOR NURSE AT BEDSIDE FOR CONTINUITY OF CARE. PT IS AAOX4, NO S/S OF DISTRESS NOTED ON ROOM AIR. DENIES PAIN AT THIS TIME D/T HAVING RECEIVED MORPHINE PRN AT 0703. IV 20G ON R FA, PATENT, INTACT AND INFUSING NS WELL. PT HAD BILATERAL BELOW THE KNEES AMPUTATION. PT HAS CELLULITIS ON STUMPS AND THEY ARE WRAPPED, CLEAN AND INTACT. PATIENT HAS BLISTERS ON L FOREARM. PATIENT WAS ASKED IF HE WANTED HIS GLUCOTROL, PATIENT STATED HIS PAIN LEVEL IS REDUCED AND HE WILL TAKE ANY MEDICATIONS THAT ARE ORDERED. SCHEDULED GLUCOTROL ADMINISTERED, PATIENT TOLERATED IT WELL. VS WNL. SAFETY AND ISOLATION PRECAUTIONS IN PLACE, BED IN LOWEST POSITION, CALL LIGHT WITHIN REACH. WILL CONTINUE TO MONITOR PATIENT.
--- NOTE | 2017-09-02 07:50 | NUR ---
THE DOCTORS ARE IN TO SEE THE PATIENT. WILL AWAIT NEW ORDERS.
[2017-09-02 08:00] VITALS: BP 162/78
[2017-09-02 08:00] LABS: ANION GAP 14.1 (8-16); CARBON DIOXIDE 23.9 mmol/L (21-32); CREATININE 1.7 mg/dL (0.7-1.3)
[2017-09-02] MEDS: amLODIPine 5 MG TAB PO SCH (08:50)
[2017-09-02] MEDS: ESCITALOPRAM 20 MG TAB PO SCH (08:52)
[2017-09-02] MEDS: QUEtiapine FUMARATE 100 MG TAB PO SCH (08:54)
[2017-09-02] MEDS: HYDROCHLOROTHIAZIDE 25 MG TAB PO SCH (08:56)
[2017-09-02] MEDS ORDERED: INSULIN LANTUS 100 UNITS/ML 10 ML VIAL SUBQ SCH (09:00)
[2017-09-02] MEDS: LACTOBACILLUS RHAMNOSUS GG 1 EACH CAP PO SCH (09:03)
--- NOTE | 2017-09-02 09:05 | NUR ---
ADMINISTERED MORNING MEDICATIONS. PATIENT TOLERATED THEM WELL. NO SIGNS OF DISTRESS OR SOB NOTED. BREATHING EVEN AND UNLABORED. PATIENT DENIES PAIN. SAFETY AND ISOLATION PRECAUTION IN PLACE, CALL LIGHT WITHIN REACH. WILL CONTINUE TO MONITOR PATIENT.
[2017-09-02] MEDS: HYDROCORTISONE 2.5% CRM 30 GM TUBE TP SCH (10:30)
--- NOTE | 2017-09-02 10:30 | NUR ---
HOWARD HARRIS GIVING PATIENT REQUESTED SPONGE BATH. ORDERED HYDROCORTISONE APPLIED TO BACK. PATIENT TOLERATED IT WELL. PATIENT CHANGED. NO SIGNS OF DISTRESS OR SOB NOTED. PATIENT DENIES PAIN AT THIS TIME. SAFETY AND ISOLATION PRECAUTION IN PLACE, CALL LIGHT WITHIN REACH. WILL CONTINUE TO MONITOR PATIENT. Addendum: 09/02/17 at 1041 by Hoang Fontanez RN PATIENT'S SISTER, CELINE, IN TO SEE THE PATIENT. REQUESTED UPDATED INFORMATION ABOUT DR. HUNT'S CONSULTATION. CELINE WAS UPDATED ON PLAN OF CARE, SHE VERBALIZED UNDERSTANDING. SHE WILL BE BACK LATER TODAY AND REQUESTED TO SEE THE RESIDENTS.
--- NOTE | 2017-09-02 11:34 | NUR ---
BLOOD SUGAR 143, NO COVERAGE NEEDED. PATIENT STATED PAIN 10/10 OF HIS BKAS, RADIATING TO HIS LEGS, REQUESTING MORPHINE PRN. MORPHINE PRN ADMINISTERED. PATIENT TOLERATED IT WELL. ALSO REQUESTING DIET SODA FOR LUNCH. DIETARY WAS CALLED AND SODA WAS REQUESTED FOR PATIENT. BP 173/82, HR 74. WILL REASSESS AFTER MORPHINE ADMINISTRATION. SAFETY AND ISOLATION PRECAUTIONS IN PLACE, CALL LIGHT WITHIN REACH, WILL CONTINUE TO MONITOR PATIENT.
--- NOTE | 2017-09-02 12:20 | NUR ---
PATIENT SITTING UP IN BED AND EATING LUNCH, NO SIGNS OF DISTRESS NOTED, PATIENT STATES THAT PAIN LEVEL IS BETTER. BP 129/60, HR 65. SAFETY AND ISOLATION PRECAUTIONS IN PLACE, CALL LIGHT WITHIN REACH, WILL CONTINUE TO MONITOR PATIENT.
[2017-09-02] MEDS ORDERED: CLINDAMYCIN 600 MG in DEXTROSE 5% 50 ML IV SCH ×2 (12:30→18:00)
[2017-09-02] MEDS: MUPIROCIN 2% OINT 22 GM TUBE TP SCH (13:37)
[2017-09-02] MEDS: CHLORHEXADINE GLUC 2% CLOTH TP SCH (13:37)
[2017-09-02] MEDS ORDERED: LIDOCAINE 2% 100 MG/5 ML UJET TP ONE (14:50)
[2017-09-02] MEDS ORDERED: LIDOCAINE 2% 1000 MG/50 ML VIAL INJ SCH (15:00)
[2017-09-02] MEDS ORDERED: ORE25 PO (15:05)
[2017-09-02] MEDS ORDERED: QUET100T44 PO (15:05)
[2017-09-02] MEDS ORDERED: LACT10CA PO (15:05)
[2017-09-02] MEDS ORDERED: AMLO5TAB4 PO (15:05)
[2017-09-02] MEDS ORDERED: GLIP5TAB13 PO (15:05)
[2017-09-02] MEDS ORDERED: ESCI20TA47 PO (15:05)
[2017-09-02] MEDS ORDERED: ACET-2858 PO (15:07)
[2017-09-02 16:00] VITALS: BP 130/66
[2017-09-02] MEDS ORDERED: CEPH250C16 PO (16:01)
[2017-09-02] MEDS ORDERED: DOCU-299 PO (16:01)
--- NOTE | 2017-09-02 16:45 | NUR ---
BLOOD SUGAR 98, NO COVERAGE GIVEN. PATIENT RESTING IN BED. VITAL SIGNS WNL. TRIED TO CONTACT SISTER, CELINE, ABOUT IMPENDING DISCHARGE AT [phone]. LEFT A MESSAGE, WILL AWAIT HER CALL.
--- NOTE | 2017-09-02 17:20 | NUR ---
SISTER, LEVI, WAS CALLED AT [phone], ABOUT PATIENT'S IMPENDING DISCHARGE. LEFT A MESSAGE. WILL AWAIT HER CALL. PATIENT' RESTING IN BED, SAFETY AND ISOLATION PRECAUTION IN PLACE, WILL CONTINUE TO MONITOR PATIENT.
--- NOTE | 2017-09-02 17:45 | NUR ---
SISTER LEVI CALLED BACK. PATIENT CAN BE DISCHARGE AT 7:30PM, THAT IS THE TIME THAT SHE WILL BE ABLE TO PICK THE PATIENT UP. PATIENT HAS BEEN INFORMED, HE VERBALIZED UNDERSTANDING. HE IS SITTING UP IN BED, EATING HIS DINNER. SAFETY AND ISOLATION PRECAUTION IN PLACE, CALL LIGHT WITHIN REACH. WILL CONTINUE TO MONITOR PATIENT.
--- NOTE | 2017-09-02 18:50 | NUR ---
DISCHARGE TEACHING AND INSTRUCTION GIVEN. PATIENT VERBALIZED UNDERSTANDING. IV REMOVED, IV CATHETER INTACT. ID BANDS CUT. PATIENT WILL NOW CHANGE INTO HIS GOWN CLOTHING TO AWAIT FOR HIS SISTER LEVI TO COME PICK HIM UP.
--- NOTE | 2017-09-02 19:30 | NUR ---
REPORT GIVEN TO ART PREPARATOR NURSE AT BEDSIDE FOR CONTINUITY OF CARE. PATIENT IS CHANGED AND READY FOR DISCHARGE. PATIENT IN STABLE CONDITION.
--- NOTE | 2017-09-02 19:40 | NUR ---
RECEIVED REPORT FROM AM NURSE. PT RESTING IN BED, AOX4, ABLE TO VERBALIZE NEEDS. PT IS GETTING READY FOR DISCHARGE, INSTRUCTIONS ALEADY GIVEN BY AM NURSE.
--- NOTE | 2017-09-02 20:20 | NUR ---
DISCHARGE INSTRUCTIONS ALREADY GIVEN TO PT BY AM NURSE, PT'S FAMILY ACCOMPANYING PT, PT DISCHARGE VIA PT'S OWN WHEELCHAIR BY SHANK CARRIER. IV ACCESS ALREADY REMOVED BY AM NURSE, ID BAND REMOVED. CONDITION STABLE AT DISCHARGE.
== END 2017-09-02 20:20 | disposition home or self-care (01) | DRG 463 ==
LOC: MED 13:11 → MTU 15:05
PROVIDERS: ADMIT Family Medicine; ATTEND Family Medicine
PROC: 0JBM0ZZ Excision of Left Upper Leg Subcutaneous Tissue and Fascia, Open Approach (ICD-10-PCS; principal; 2017-09-02)
DX: T87.44 Infection of amputation stump, left lower extremity (principal); N17.0 Acute kidney failure with tubular necrosis; E43 Unspecified severe protein-calorie malnutrition; D68.59 Other primary thrombophilia; E11.40 Type 2 diabetes mellitus with diabetic neuropathy, unspecified; E11.51 Type 2 diabetes mellitus with diabetic peripheral angiopathy without gangrene; E11.622 Type 2 diabetes mellitus with other skin ulcer; L89.893 Pressure ulcer of other site, stage 3; L03.116 Cellulitis of left lower limb; L03.115 Cellulitis of right lower limb; F31.5 Bipolar disorder, current episode depressed, severe, with psychotic features; E11.65 Type 2 diabetes mellitus with hyperglycemia; F31.9 Bipolar disorder, unspecified; I10 Essential (primary) hypertension; Z89.511 Acquired absence of right leg below knee; D63.8 Anemia in other chronic diseases classified elsewhere; Z89.512 Acquired absence of left leg below knee; Y83.5 Amputation of limb(s) as the cause of abnormal reaction of the patient, or of later complication, without mention of misadventure at the time of the procedure; I70.209 Unspecified atherosclerosis of native arteries of extremities, unspecified extremity; Z87.81 Personal history of (healed) traumatic fracture; Z88.1 Allergy status to other antibiotic agents; Z91.040 Latex allergy status; Z79.4 Long term (current) use of insulin; Z91.14 Patient's other noncompliance with medication regimen; Z68.24 Body mass index [BMI] 24.0-24.9, adult
CPT/HCPCS: 36415; 80048; 80053; 80305; 81001; 82150; 82948; 83036; 83690; 83735; 83880; 84100; 84436; 84439; 84443; 84479; 85025; 85610; 85730; 87040; 87070; 87075; 87081; 87186; 87205; 93005; 93925; 93970; 96374; 96375; 99285; J0295; J1644; J1815; J2001; J2270; J2405; J3490; J7030; J7060; Q0092; Q0163

== ENCOUNTER 2017-09-15 21:41 | Inpatient (IN) | payer OTHER ==
[~2017-09-15] VITALS: Ht 185.4 cm; Wt 83.5 kg
[~2017-09-15 21:41] MED LIST: ACET-2858 PO; AMLO5TAB4 PO; CEPH250C16 PO; DOCU-299 PO; ESCI20TA47 PO; GLIP5TAB13 PO; LACT10CA PO; ORE25 PO; QUET100T44 PO
[2017-09-15 22:08] VITALS: BP 138/69
--- NOTE | 2017-09-15 23:43 | NUR ---
TO ER BED 12
--- NOTE | 2017-09-15 23:45 | NUR ---
61/M BIB SISTER W C/O 04/24 ERNESTINA BKA STUMP PAIN PROGRESSIVELY WORSENING X 1 WEEK. FAMILY REPORTS PT WAS ADMITTED FOR SIMILAR SYMPTOMS AND WAS DISCHARGE. SISTER REPORTS PT IS NONCOMPLIANT WITH MEDICATIONS AND CONTINUED TO WEAR ERNESTINA PROSTHESIS. ERNESTINA STUMP WAS COVERED WITH DRY GAUZE, PER PT HE DRESSED HIMSELF, MALODOROUS SCENT FROM WOUNDS NOTED. OPEN WOUNDS PRESENT UPON ARRIVAL TO ER. LT BKA STUMP NOTED WITH OPEN ULCER TO MEDIAL POPLITEAL AREA, CIRCUMFERENTIAL BLISTERS AND OPEN WOUND AROUND LT UPPER THIGH, OPEN ULCER ON TOP OF STUMP. RT STUMP NOTED WITH OPEN ULCER ON MEDIAL POPLITEAL AND SMALL ULCER ON LATERAL POPLITEAL. PT REPORTS PURULENT DRAINAGE FROM ALL WOUNDS. DENIES FEVER/CHILLS. PMH: BIPOLAR, DM, HTN, RENAL FAILURE
[2017-09-16] MEDS ORDERED: ONDANSETRON 4 MG/2 ML VIAL IVP ONE (00:15)
[2017-09-16] MEDS ORDERED: MORPHINE SULFATE 4 MG/ML SYR IVP ONE (00:15)
--- NOTE | 2017-09-16 00:52 | NUR ---
Patient noted to have existing wounds upon arrival to ER. Photos taken of wound and placed in chart. Wound covered with dressing. Physician informed.
[2017-09-16 00:54] LABS: HEMATOCRIT 33.9 % (36-52); HEMOGLOBIN 11.2 g/dL (12.0-18.0); MEAN CORPUSCULAR HEMOGLOBIN 33 pg (27-31); MEAN CORPUSCULAR HGB CONC 33 g/dL (33-37); MEAN CORPUSCULAR VOLUME 100 fL (80-94); PLATELET COUNT (AUTO) 236 K/uL (140-450); RED CELL DISTRIBUTION WIDTH 12.3 % (11.6-13.7); WHITE BLOOD COUNT (AUTO) 8.7 K/uL (4.8-10.8)
[2017-09-16 01:05] LABS: CARBON DIOXIDE 25.3 mmol/L (21-32); EOSINOPHILS % (MANUAL) 5 % (0-4); LYMPHOCYTES % (MANUAL) 17 % (20-46); MONOCYTES % (MANUAL) 6 % (5-12); POTASSIUM 3.3 mmol/L (3.5-5.1)
[2017-09-16 01:09] LABS: PROTHROMBIN TIME 9.7 secs (10.8-13.4)
[2017-09-16 01:11] LABS: ALBUMIN 2.2 g/dL (3.4-5.0); TOTAL BILIRUBIN 0.2 mg/dL (0.0-1.0)
[2017-09-16] MEDS ORDERED: AMPICILLIN/SULBACTAM 3 GM in NACL 0.9% 100 ML IV ONE (02:15)
[2017-09-16] MEDS ORDERED: AMPICILLIN/SULBACTAM 3 GM VIAL ONE (02:19)
[2017-09-16] MEDS ORDERED: DOCUSATE SODIUM 100 MG GELCAP PO PRN (02:25)
[2017-09-16] MEDS ORDERED: ACETAMINOPHEN 325 MG TAB PO PRN (02:25)
[2017-09-16] MEDS ORDERED: ONDANSETRON 4 MG/2 ML VIAL IVP PRN (02:25)
[2017-09-16] MEDS ORDERED: DEXTROSE 50% 50 ML SYR IVP PRN (02:25)
--- NOTE | 2017-09-16 02:57 | NUR ---
Patient will be admitted to care of ABDIAZIZ. Admited to TELE. Will go to room 124B. Belongings list completed. BEDSIDE Report to HUY PANIAGUA. IV INFUSING
--- NOTE | 2017-09-16 02:57 | NUR ---
Pt transferred to Tele ROOM 123B via BED .
[2017-09-16 03:05] VITALS: BP 159/56
--- NOTE | 2017-09-16 03:05 | NUR ---
RECEIVED PATIENT FROM ER. PATIENT A&OX4. IV SITE PATENT AND INTACT. PATIENT DENIES PAIN. PATIENT HAS BBKA, MULTIPLE WOUNDS, AND PROSTHETICS AT BEDSIDE. PATIENT IS EMOTIONALLY DISRUPTED DUE TO AN "UNFULFILLED LIFE" AND BREAKS OUT IN TEARS MULTIPLE TIMES. PATIENT FREQUENTLY REFERENCES GOD. PATIENT DENIES ANY THOUGHTS OF HURTING HIMSELF OR OTHERS. NO SIGNS OR SYMPTOMS OF ACUTE DISTRESS NOTED. SAFETY MEASURES ENSURED. CALL LIGHT WITHIN REACH. FALL RISK PROTOCOL IN PLACE. WILL CONTINUE TO MONITOR.
[2017-09-16 03:06] LABS: FREE T4 (FREE THYROXINE) 1.07 ng/dL (0.76-1.46); MAGNESIUM 1.9 mg/dL (1.8-2.4); PHOSPHORUS 4.1 mg/dL (2.5-4.9); THYROID STIMULATING HORMONE 0.89 uIU/mL (0.34-3.74)
[2017-09-16] MEDS: NACL 0.9% 1,000 ML IV SCH ×2 (04:00→14:55)
--- NOTE | 2017-09-16 04:23 | NUR ---
PATIENT OFF UNIT TO CT SCAN
[2017-09-16] MEDS ORDERED: POTASSIUM CHLORIDE 10 MEQ TABER PO SCH (04:30)
--- NOTE | 2017-09-16 04:57 | NUR ---
PATIENT BROUGHT BACK ON UNIT FROM CT.
[2017-09-16] MEDS ORDERED: PIPERACILLIN/TAZOBACTAM 3.375 GM VIAL IV ONE (05:07)
[2017-09-16] MEDS ORDERED: KETOROLAC 15 MG/ML VIAL IM PRN (05:20)
[2017-09-16] MEDS ORDERED: HYDROcodone/APAP 10/325 MG 1 TAB TAB PO PRN (05:20)
[2017-09-16] MEDS ORDERED: PIPERACILLIN/TAZOBACTAM 3.375 GM in DEXTROSE 5% 50 ML IV SCH (06:00)
[2017-09-16] MEDS: glipiZIDE 5 MG TAB PO SCH (06:37)
[2017-09-16] MEDS: INSULIN LISPRO SLIDING SCALE 100 UNITS/ML VIAL SUBQ PRN (06:40)
[2017-09-16] MEDS: BLOOD GLUCOSE MONITORING 1 DEV DEV FS SCH ×4 (06:41→21:18)
--- NOTE | 2017-09-16 06:41 | NUR ---
DR. JUSTICE NOTIFIED OF 2ND DEGREE HEART BLOCK. TO ORDER EKG.
[2017-09-16 07:01] LABS: BASOPHILS # (AUTO) 0.1 K/uL (0.00-0.22); BASOPHILS % (AUTO) 0.9 % (0.0-2.0); EOSINOPHILS # (AUTO) 0.7 K/uL (0-0.4); HEMATOCRIT 31.3 % (36-52); HEMOGLOBIN 10.8 g/dL (12.0-18.0); LYMPHOCYTES # (AUTO) 1.2 K/uL (2.0-11.5); LYMPHOCYTES % (AUTO) 15.4 % (20.5-51.1); MEAN CORPUSCULAR HEMOGLOBIN 34 pg (27-31); MEAN CORPUSCULAR HGB CONC 35 g/dL (33-37); MEAN CORPUSCULAR VOLUME 99 fL (80-94); MONOCYTES # (AUTO) 0.5 K/uL (0.8-1.0); MONOCYTES % (AUTO) 6.6 % (1.7-9.3); NEUTROPHILS % (AUTO) 68.1 % (42.2-75.2); PLATELET COUNT (AUTO) 233 K/uL (140-450); RED BLOOD CELL COUNT(AUTO) 3.17 MIL/uL (4.20-6.10); RED CELL DISTRIBUTION WIDTH 12.2 % (11.6-13.7); WHITE BLOOD COUNT (AUTO) 7.5 K/uL (4.8-10.8)
--- NOTE | 2017-09-16 07:30 | NUR ---
ENDORSED PLAN OF CARE TO AM RN. PATIENT IN STABLE CONDITION
[2017-09-16 07:45] LABS: CHOL/HDL RATIO 2.6 (1-4.5)
[2017-09-16 08:00] VITALS: BP 123/68
--- NOTE | 2017-09-16 08:00 | NUR ---
ENDORSEMENT RECEIVED FROM GAME DEVELOPER NURSE. PATIENT IS AWAKE, ALERT. RESPIRATION EVEN, UNLABOR ON ROOM AIR. SKIN DRY AND WARM. IV PATENT AND INTACT. DENIED PAIN, N/V AT THIS TIME. NO DISTRESS NOTED. VS WAS TAKEN. PLAN OF CARE WAS DISCUSSED WITH THE PATIENT. US TECH IS AT BEDSIDE. CALL LIGHT WITHIN REACH
[2017-09-16 08:26] LABS: ANION GAP 13.3 (8-16); CARBON DIOXIDE 22.2 mmol/L (21-32); CREATININE 1.9 mg/dL (0.7-1.3); POTASSIUM 3.5 mmol/L (3.5-5.1)
[2017-09-16] MEDS ORDERED: amLODIPine 5 MG TAB PO SCH (09:00)
[2017-09-16] MEDS: QUEtiapine FUMARATE 100 MG TAB PO SCH ×2 (09:14→21:19)
[2017-09-16] MEDS: LACTOBACILLUS RHAMNOSUS GG 1 EACH CAP PO SCH (09:15)
[2017-09-16] MEDS: HYDROCHLOROTHIAZIDE 25 MG TAB PO SCH (09:15)
[2017-09-16] MEDS: ESCITALOPRAM 20 MG TAB PO SCH (09:15)
--- NOTE | 2017-09-16 11:17 | NUR ---
SPONGE BATH WAS GIVEN TO THE PATIENT. WOUND CULTURES POPLITEAL WERE OBTAINED AND SENT TO LAB
[2017-09-16] MEDS: PIPER/TAZO 3.375GM/D5W PREMIX 50 ML IV SCH ×3 (11:57→23:25)
[2017-09-16 12:00] VITALS: BP 146/65
--- NOTE | 2017-09-16 14:37 | NUR ---
PATIENT IS SLEEPING COMFORTABLY. RESPIRATION EVEN, UNLABOR ON ROOM AIR. NO DISTRESS NOTED AT THIS TIME. CALL LIGHT WITHIN REACH
[2017-09-16 16:00] VITALS: BP 121/60
--- NOTE | 2017-09-16 17:39 | NUR ---
PATIENT IS SLEEPING COMFORTABLY, AROUSABLE BY NAME . RESPIRATION EVEN, UNLABOR ON ROOM AIR. NO DISTRESS NOTED AT THIS TIME. ORANGE JUICE WAS OFFERED. PATIENT REFUSED. CALL LIGHT WITHIN REACH
--- NOTE | 2017-09-16 18:27 | NUR ---
PATIENT IS SLEEPING COMFORTABLY. DRESSINGS WERE CHANGED ON BILATERAL STUMPS
--- NOTE | 2017-09-16 19:26 | NUR ---
ENDORSEMENT GIVEN TO THE XEROX MACHINE OPERATOR NURSE. PATIENT IS STABLE AT THIS TIME
--- NOTE | 2017-09-16 19:27 | NUR ---
PATIENT REPORT RECEIVED FROM MORNING NURSE AT BEDSIDE. PATIENT IS ASLEEP, BUT EASY TO AROUSE. NO SIGNS AND SYMPTOMS OF DISTRESS NOTED. PATIENT IS ON ROOM AIR. IV SITE NOTED ON LEFT AC, IVF INFUSING WELL. PATIENT IS A BILATERAL BELOW THE KNEE AMPUTEE. MULTIPLE WOUNDS NOTED ON BILATERAL LOWER EXTREMITIES. BED IN LOWEST POSITION, SIDE RAILS UP AND CALL LIGHT WITHIN REACH. WILL CONTINUE TO MONITOR.
[2017-09-16 20:00] VITALS: BP 154/70
[2017-09-16] MEDS: KETOROLAC 15 MG/ML VIAL IVP PRN (21:30)
--- NOTE | 2017-09-16 22:00 | NUR ---
CHECKED ON PATIENT. PATIENT IS ASLEEP. NO SIGNS AND SYMPTOMS OF DISTRESS NOTED. BREATHING EVEN AND UNLABORED. WILL CONTINUE TO MONITOR.
[2017-09-17] VITALS: BP 137/75
[2017-09-17 00:47] LABS: APPEARANCE,URINE SL CLOUDY (CLEAR); BILIRUBIN,URINE NEGATIVE (NEGATIVE); BLOOD, URINE 1+ (NEGATIVE); COLOR,URINE YELLOW (YELLOW); LEUKOCYTE ESTERASE ,URINE NEGATIVE (NEGATIVE); NITRITE, URINE NEGATIVE (NEGATIVE); PH,URINE 5.5 (5.0-9.0); UGLUCOSE TRACE (NEGATIVE)
[2017-09-17 00:52] LABS: BARBITURATE, URINE NEG. ng/ml (NEG <=200); BENZODIAZEPINE, URINE NEG. ng/mL (NEG <=200); CANNABINOID, URINE NEG. ng/mL (NEG <=50); COCAINE, URINE NEG. ng/mL (NEG <=300); OPIATE, URINE NEG. ng/mL (NEG <=2000); PHENCYCLIDINE SCREEN,URINE NEG. ng/mL (NEG <=25)
[2017-09-17 01:02] LABS: HYALINE CASTS, URINE 0-10 /LPF (None Seen); RBC,URINE 0-5 (RARE) /HPF (0-5); WBC,URINE 0-5 (RARE) /HPF (0-5)
--- NOTE | 2017-09-17 02:00 | NUR ---
CHECKED ON PATIENT. PATIENT IS ASLEEP. NO SIGNS AND SYMPTOMS OF DISTRESS NOTED. BREATHING EVEN AND UNLABORED. WILL CONTINUE TO MONITOR.
[2017-09-17] MEDS: NACL 0.9% 1,000 ML IV SCH ×2 (03:25→15:24)
[2017-09-17 04:00] VITALS: BP 181/89
[2017-09-17] MEDS: KETOROLAC 15 MG/ML VIAL IVP PRN ×3 (04:25→18:51)
[2017-09-17] MEDS ORDERED: hydrALAZINE 20 MG/ML VIAL IVP SCH (05:00)
[2017-09-17] MEDS: PIPER/TAZO 3.375GM/D5W PREMIX 50 ML IV SCH ×3 (05:10→17:43)
--- NOTE | 2017-09-17 05:30 | NUR ---
PATIENT TRANSPORTED TO ROOM 116
[2017-09-17 07:00] LABS: BASOPHILS # (AUTO) 0.1 K/uL (0.00-0.22); BASOPHILS % (AUTO) 1.1 % (0.0-2.0); EOSINOPHILS # (AUTO) 0.4 K/uL (0-0.4); EOSINOPHILS % (AUTO) 8.2 % (0.0-4.0); HEMATOCRIT 34.3 % (36-52); HEMOGLOBIN 11.3 g/dL (12.0-18.0); LYMPHOCYTES # (AUTO) 0.6 K/uL (2.0-11.5); LYMPHOCYTES % (AUTO) 12.4 % (20.5-51.1); MEAN CORPUSCULAR HEMOGLOBIN 33 pg (27-31); MEAN CORPUSCULAR HGB CONC 33 g/dL (33-37); MEAN CORPUSCULAR VOLUME 100 fL (80-94); MONOCYTES # (AUTO) 0.2 K/uL (0.8-1.0); MONOCYTES % (AUTO) 4.2 % (1.7-9.3); NEUTROPHILS # (AUTO) 3.5 K/uL (1.8-7.7); NEUTROPHILS % (AUTO) 74.1 % (42.2-75.2); PLATELET COUNT (AUTO) 236 K/uL (140-450); RED BLOOD CELL COUNT(AUTO) 3.43 MIL/uL (4.20-6.10); RED CELL DISTRIBUTION WIDTH 12.5 % (11.6-13.7); WHITE BLOOD COUNT (AUTO) 4.8 K/uL (4.8-10.8)
[2017-09-17 07:19] LABS: ANION GAP 13.4 (8-16); CARBON DIOXIDE 24.3 mmol/L (21-32); CREATININE 2.1 mg/dL (0.7-1.3); POTASSIUM 3.7 mmol/L (3.5-5.1)
[2017-09-17 07:25] LABS: MAGNESIUM 1.7 mg/dL (1.8-2.4); PHOSPHORUS 4.1 mg/dL (2.5-4.9)
[2017-09-17] MEDS: glipiZIDE 5 MG TAB PO SCH (07:30)
[2017-09-17] MEDS: BLOOD GLUCOSE MONITORING 1 DEV DEV FS SCH ×4 (07:38→21:00)
--- NOTE | 2017-09-17 07:40 | NUR ---
PATIENT REPORT GIVEN TO MORNING NURSE AT BEDSIDE. PATIENT IS IN STABLE CONDITION
--- NOTE | 2017-09-17 07:40 | NUR ---
Report was given, patient is sitting in bed and is A&OX4.
[2017-09-17 08:00] VITALS: BP 143/80
[2017-09-17] MEDS ORDERED: amLODIPine 5 MG TAB PO SCH (09:00)
[2017-09-17] MEDS: LACTOBACILLUS RHAMNOSUS GG 1 EACH CAP PO SCH (09:20)
[2017-09-17] MEDS: ESCITALOPRAM 20 MG TAB PO SCH (09:22)
[2017-09-17] MEDS: amLODIPine 5 MG TAB PO SCH (09:22)
[2017-09-17] MEDS: HYDROCHLOROTHIAZIDE 25 MG TAB PO SCH (09:24)
[2017-09-17] MEDS: QUEtiapine FUMARATE 100 MG TAB PO SCH ×2 (09:24→21:16)
--- NOTE | 2017-09-17 09:45 | NUR ---
Toradol medication 15mg IVP given for pain 12/23. Medication was scanned but unable to save d/t time lapse of the computer. ac
--- NOTE | 2017-09-17 10:20 | NUR ---
PATIENT HAS BEEN SCREENED AND CATEGORIZED HIGH NUTRITION RISK. PATIENT WILL BE SEEN WITHIN 1-2 DAYS OF ADMISSION. 09/16/17-09/17/[address]
--- NOTE | 2017-09-17 10:30 | NUR ---
WOUND CARE EVALUATION NOTE: REASON FOR EVALUATION: BLE LESIONS COMPLETE SKIN ASSESSMENT DONE ON THIS 61 Y/O MALE PATIENT ADMITTED TO [facility] [address] WITH CHIEF COMPLAINT OF WORSENING BILATERAL STUMP PAIN AND DIAGNOSIS OF CELLULITIS. PAST MEDICAL HX INCLUDE DM, HTN, RENAL DISEASE AND OSTEOMYELITIS. SKIN IS WARM AND DRY. MULTIPLE DRY BLISTERS AND INTACT WITH BLISTERS WITH CLEAR FLUID NOTED TO BLE. POPLITEAL PULSES PRESENT. PATIENT IS ABLE TO TURN HIMSELF. INFORMED PATIENT NOT TO APPLY PROSTHETICS TO BLE UNTIL WOUNDS HAVE HEALED. PATIENT VERBALIZED UNDERSTANDING. INITIAL PLAN OF CARE DISCUSSED WITH PRIMARY RN. INTEGUMENTARY: INTACT DRY SKIN NOTED TO THE SACRAL AREA. LEFT THIGH MULTIPLE BLISTERS WITH THE LARGEST MEASUREMENT OF 1.5X2.5 CM AREA IS RED AND DRY. LATERAL LEFT THIGH WITH DRY BLISTERS , MULTIPLE SCABS IN PLACE. AREA IS DRY AND CLEAN. NO REDNESS OR DRAINAGE NOTED RIGHT THIGH MULTIPLE BLISTERS WITH LARGEST MEASUREMENT OF 1.5 X 1.0 CM WITH SURROUNDING AREA WITH MULTIPLE DRY HEALED SCARS. LEFT STUMP PRESSURE ULCER STAGE 2 WOUND BED DRY MARYURI PINK 1.0X2.0 CM WITH SURROUNDING WITH DARKBROWN SURROUNDING TISSUE MEASURING 7.0X 6.0 CM WITH BONE PALPATED RIGHT NEXT TO THE STUMP. LEFT POSTERIOR MEDIAL CONDYLE PRESSURE ULCER UN-STAGEABLE 0.8 X 0.8 CM WOUND BED 100% YELLOW, DRY, NO ODOR. PERIWOUND DRY AND BROWNISH SOFT TISSUE. RIGHT POSTERIOR MEDIAL CONDYLE PRESSURE ULCER UN-STAGEABLE 1.8 X 1.5 CM WOUND BED 100% YELLOW, DRY, NO ODOR. PERIWOUND DRY AND BROWNISH SOFT TISSUE. RECOMMENDATIONS: -DO NOT APPLY PROSTHETICS TO BLE UNTIL WOUND IS HEALED - SURGEON CONSULT TO BILATERAL STUMPS -DEBRIDEMENT TO LEFT AND RIGHT POSTERIOR MEDIAL CONDYLE PRESSURE ULCERS -CLEAN LEFT AND RIGHT POSTERIOR MEDIAL CONDYLE PRESSURE ULCERS AND LEFT STUMP PRESSURE ULCER WITH NS, PAT DRY THEN APPLY HYDROGEL QDAY AND PRN IF SOILING -CLEANSE BILATERAL THIGHS DRY SKIN TEARS WITH NS. PAT DRY, APPLY XEROFORM DRESSING WRAP WITH KERLIX AND GREY BANDAGE Q7 DAYS AND PRN. -TURN AND REPOSITION PATIENT Q2H -ASSESS AND MONITOR SKIN CONDITION DURING POSITION CHANGE, PLEASE PAY ATTENTION TO BILATERAL STUMPS,POSTERIOR MEDIAL CONDYLE -APPLY HYDRAGUARD TO SACRAL AREA BIDCC AND PRN IF SOILING -KEEP SKIN CLEAN AND DRY AT ALL TIMES. -CONTINUE TO FOLLOW RD RECOMMENDATION RECOMMENDATIONS DISCUSSED WITH PRIMARY RN AND DR. BORDEN WILL FOLLOW UP PATIENT Q 7-10 DAYS AND PRN. PLEASE CONTACT WOUND CARE NURSE FOR ANY QUESTIONS AND CHANGES IN WOUND CONDITION.
--- NOTE | 2017-09-17 11:00 | NUR ---
CULTURES TO ALL THE WOUND NOT DONE, DRY WOUNDS NOTED. SPOKE WITH WOUND CARE NURSE AND ALSO STATED THERE IS NOTHING TO CULTURE, NO DRAINAGE NOTED AT THIS TIME. DR. BORDEN NOTIFIED.
[2017-09-17 12:00] VITALS: BP 142/70
[2017-09-17] MEDS: HYDROcodone/APAP 10/325 MG 1 TAB TAB PO PRN (13:09)
--- NOTE | 2017-09-17 13:30 | NUR ---
PT WAS BEING NON-COMPLIANT ON THE USE OF HIS BILATERAL LEG PROSTHESIS DUE TO HIS WOUNDS. PT HAS BEEN INSTRUCTED EARLIER IN THE MORNING BY THE HIS NURSE, RESIDENT PHYSICIAN, WOUND CARE NURSE NOT TO USE IT UNTIL FURTHER ORDER BY HIS ATTENDING PHYSICIAN. PT STILL INSISTING AND WORN HIS PROSTHESIS WHEN HE WENT TO THE BATHROOM DURING TODAY'S PHYSICAL THERAPY SESSION DESPITE THE PHYSICAL THERAPISTS INSTRUCTIONS ON THE RISKS AND THE ORDERS OF NOT TO USE IT YET. PHYSICAL THERAPISTS WERE ABLE TO TAKE THE LEFT PROSTHESIS OUT BUT THE RIGHT DOES NOT NOT COME OFF, IT SEEMS LIKE THE SCREW IS BROKEN. CALLED [facility] [facility] ([phone]) AND SPOKE WITH SONIA AND STATED HE HAVE KNOWN THIS PT FOR 6 YEARS AND IS AWARE OF PT NON COMPLIANT ON HIS REGULAR CHECK UP TO HAVE HIS PROTHESIS CHECK REGULARLY AT THE ORTHOTIC COMPANY WHO MADE HIS PROSTHESIS. SONIA STATED HE WILL CHARGE $105.00 TO THE PT OR HOSPITAL IF HE EVER HAVE TO COME IN TO TAKE THE DEVICE OUT. SPOKE WITH CORE INSERTER PAULINE AND STATED TO INFORM OUR DIRECTOR LISBETH REGARDING THIS ISSUE IF PT DON'T HAVE THE CAPABILITY TO PAY [facility]IA. SPOKE WITH PHYSICAL THERAPIST ZEINA AND STATED SHE WILL TRY AGAIN TO TAKE THE DEVICE OUT.
[2017-09-17] MEDS ORDERED: HYDRAGUARD CREAM TP ONE (14:50)
[2017-09-17] MEDS ORDERED: Z-GUARD PASTE TP ONE (14:50)
[2017-09-17] MEDS ORDERED: HYDRAGUARD CREAM TP PRN (15:05)
--- NOTE | 2017-09-17 15:30 | NUR ---
PHYSICAL THERAPIST ZEINA CAME AND SONIA FROM [employer] WAS ON THE PHONE TO GIVE INSTRUCTIONS ON HOW TO TAKE IT OUT BUT STILL UNABLE TO SO. SPOKE WITH PATIENT AND EXPLAINED THE ISSUE. PT IS AGREEABLE TO PAY $105.00 FOR SONIA'S SERVE FEE. PT STATED THAT HE WILL CALL HIS SISTER LEVI TO BRING THE MONEY TO PAY SONIA IN TAKING THE RT LEG PROSTHESIS OUT. SPOKE WITH SONIA, STATED HE WILL COME IN AND TAKE IT OUT TODAY AND HE WILL JUST FOLLOW UP WITH THE PAYMENT AFTERWARDS.
[2017-09-17 16:00] VITALS: BP 120/63
--- NOTE | 2017-09-17 16:00 | NUR ---
LEFT A MESSAGE TO LEVI TO CALL BACK THE NURSE TO FOLLOW UP WITH THE PAYMENT. AWAITING FOR CALL BACK.
--- NOTE | 2017-09-17 16:19 | NUR ---
09/17/2017 RD INITIAL ASSESSMENT COMPLETED PLEASE REFER TO NUTRITION ASSESSMENT UNDER CARE ACTIVITY FOR ESTIMATED NUTRITIONAL NEEDS. CONTINUE ANTI HYPERGLYCEMIC MEDS AND [facility] FOR GLUCOSE CONTROL. DIETARY AND NURSING STAFF TO ENCOURAGE INCREASED PO INTAKE. RD TO FOLLOW-UP IN 2-3 DAYS PATIENT IS HIGH RISK. EDITH [address] RD
[2017-09-17] MEDS ORDERED: MAGNESIUM OXIDE 400 MG TAB PO SCH (17:00)
--- NOTE | 2017-09-17 17:00 | NUR ---
SONIA THE POP SINGER OF [employer] AND WAS ABLE RO REMOVE THE RT LEG PROSTHESIS. NO WOUND NOTED ON THE RT STUMP. SONIA STATED HE KNOW THAT PT DO NOT HAVE ANY MONEY TO PAY FOR HIS SERVICE. PT STATED HE WILL FOLLOW UP WITH HIS SISTER REGARDING THE PAYMENT FOR SONIA.
--- NOTE | 2017-09-17 19:10 | NUR ---
Pt on bedpan. No complaints at this time. Instructed pt to call when done. Report given to night worker nurse for continuity of care.
--- NOTE | 2017-09-17 19:12 | NUR ---
RECEIVED REPORT FROM DAY SHIFT NURSE. PT SITTING ON BED, EATING. NO C/ O PAIN AT THIS TIME. IV TO RIGHT WRIST #22G, NS AT 80 ML/HR, INFUSING WELL. PT ON ROOM AIR. DISCUSSED PLAN OF CARE, PT VERBALIZED UNDERSTANDING. FALL/SAFETY PRECAUTION IN PLACE. CALL LIGHT WITHIN REACH.
[2017-09-17 20:00] VITALS: BP 106/64
--- NOTE | 2017-09-17 21:20 | NUR ---
DUE MEDS GIVEN. PT TOLERATED WELL. NO C/O PAIN AT THIS TIME. ALL NEEDS MET AT THIS TIME. SAFETY PRECAUTION IN PLACE. CALL LIGHT WITHIN REACH.
--- NOTE | 2017-09-17 23:05 | NUR ---
PT SLEEPING BUT EASILY AROUSABLE. NO S/S OF DISTRESS NOTED. FALL PRECAUTION IN PLACE. CALL LIGHT WITHIN REACH.
[2017-09-18] VITALS: BP 104/55
[2017-09-18] MEDS: PIPER/TAZO 3.375GM/D5W PREMIX 50 ML IV SCH ×4 (00:40→18:28)
[2017-09-18] MEDS: HYDRAGUARD CREAM TP SCH ×2 (00:41→12:33)
--- NOTE | 2017-09-18 00:55 | NUR ---
D/C IV TO LEFT WRIST D/T LEAKING. IV CANNULA TIP INTACT. NO BLEEDING NOTED. INSERTED IV TO RIGHT FOREARM #22G. PT TOLERATED PROCEDURE WELL. GOOD FLUSH AND BLOOD RETURN. NO C/O PAIN AT THIS TIME. CALL LIGHT WITHIN REACH.
--- NOTE | 2017-09-18 03:10 | NUR ---
PT SLEEPING BUT EASILY WAKES UP. NO S/S OF PAIN OR DISCOMFORT NOTED. PT KEPT CLEAN, DRY AND COMFORTABLE. FALL PRECAUTION IN PLACE. CALL LIGHT WITHIN REACH.
[2017-09-18 04:00] VITALS: BP 149/73
[2017-09-18] MEDS: NACL 0.9% 1,000 ML IV SCH ×3 (04:57→18:31)
[2017-09-18] MEDS: KETOROLAC 15 MG/ML VIAL IVP PRN ×2 (06:19→18:37)
[2017-09-18 06:23] LABS: FOLIC ACID 6.6 ng/mL (>3.0)
[2017-09-18] MEDS: BLOOD GLUCOSE MONITORING 1 DEV DEV FS SCH ×4 (06:24→20:55)
[2017-09-18] MEDS: glipiZIDE 5 MG TAB PO SCH (06:34)
--- NOTE | 2017-09-18 06:34 | NUR ---
BS CHECKED 82. DR. INMAN ORDERED TO HOLD GLUCOTROL 5 MG PO FOR MORNING DOSE.
--- NOTE | 2017-09-18 07:05 | NUR ---
ENDORSED PT TO DAY SHIFT NURSE. PT IN STABLE CONDITION.
--- NOTE | 2017-09-18 07:06 | NUR ---
RECEIVED REPORT FROM TRANSVERSE ABDOMINAL MUSCLE SURGEON NURSE. PATIENT SITTING IN BED COMFORTABLY. NO DISTRESS NOTED. DENIES ANY PAIN AT THIS TIME. AAOX4, CALM, COOPERATIVE, SKIN COLOR APPROPRIATE TO ETHNICITY WARM TO TOUCH. HAS B/L BKA. LEFT THIGH HAS SKIN TEAR THAT IS COVERED BY DRESSING. DRESSING IS DRY AND INTACT. HAS LEFT STUMP SKIN TEAR THAT IS ANA, PATIENT REFUSES TO LET RN CLEAN AT THIS TIME. COCCYX AREA HAS LITTLE BLANCHEABLE REDNESS, BUT SKIN IS INTACT. LUNGS CTA ON ALL LOBES. ABDOMEN SOFT, NON-DISTENDED. IV SITE INTACT, PATENT AND INFUSING IVF PER ORDERS. REVIEWED PLAN OF CARE WITH PATIENT. PATIENT VERBALIZED UNDERSTANDING. SAFETY MEASURES IN PLACE, CALL LIGHT WITHIN REACH, FALL PREVENTIONS IN PLACE. WILL CONTINUE TO MONITOR.
[2017-09-18 07:26] LABS: BASOPHILS # (AUTO) 0.1 K/uL (0.00-0.22); BASOPHILS % (AUTO) 0.7 % (0.0-2.0); EOSINOPHILS # (AUTO) 0.4 K/uL (0-0.4); HEMATOCRIT 30.9 % (36-52); HEMOGLOBIN 10.3 g/dL (12.0-18.0); LYMPHOCYTES # (AUTO) 0.8 K/uL (2.0-11.5); LYMPHOCYTES % (AUTO) 9.6 % (20.5-51.1); MEAN CORPUSCULAR HEMOGLOBIN 33 pg (27-31); MEAN CORPUSCULAR HGB CONC 33 g/dL (33-37); MEAN CORPUSCULAR VOLUME 99 fL (80-94); MONOCYTES # (AUTO) 0.3 K/uL (0.8-1.0); MONOCYTES % (AUTO) 4.2 % (1.7-9.3); NEUTROPHILS # (AUTO) 6.3 K/uL (1.8-7.7); NEUTROPHILS % (AUTO) 80.5 % (42.2-75.2); PLATELET COUNT (AUTO) 216 K/uL (140-450); RED BLOOD CELL COUNT(AUTO) 3.12 MIL/uL (4.20-6.10); RED CELL DISTRIBUTION WIDTH 12.4 % (11.6-13.7); WHITE BLOOD COUNT (AUTO) 7.9 K/uL (4.8-10.8)
[2017-09-18 07:54] LABS: ANION GAP 12.4 (8-16); CARBON DIOXIDE 22.5 mmol/L (21-32); CREATININE 2.5 mg/dL (0.7-1.3); POTASSIUM 3.9 mmol/L (3.5-5.1)
[2017-09-18 08:00] VITALS: BP 130/72
[2017-09-18 08:04] LABS: PHOSPHORUS 4.2 mg/dL (2.5-4.9)
--- NOTE | 2017-09-18 09:00 | NUR ---
RECEIVED A FAX FROM SONIA ([facility]) REGARDING INFORMATIONS ON HOW HE REMOVE PT'S RT PROSTHETIC FROM PT'S RT LEG YESTERDAY. FAXED PAPERS FROM SONIA WERE PLACED IN PT'S CHART.
[2017-09-18] MEDS: HYDROCHLOROTHIAZIDE 25 MG TAB PO SCH (10:16)
[2017-09-18] MEDS: ESCITALOPRAM 20 MG TAB PO SCH (10:16)
[2017-09-18] MEDS: QUEtiapine FUMARATE 100 MG TAB PO SCH ×2 (10:16→20:47)
[2017-09-18] MEDS: LACTOBACILLUS RHAMNOSUS GG 1 EACH CAP PO SCH (10:16)
[2017-09-18] MEDS: amLODIPine 5 MG TAB PO SCH (10:17)
[2017-09-18] MEDS: HYDROcodone/APAP 10/325 MG 1 TAB TAB PO PRN ×2 (10:23→20:48)
--- NOTE | 2017-09-18 10:24 | NUR ---
PATIENT SITTING IN WHEELCHAIR WITH PHYSICAL THERAPISTS AT BEDSIDE. NO DISTRESS NOTED. COMPLAINTS OF 7/10 GENERALIZED PAIN, MEDICATED WITH NORCO PER ORDERS. OTHER SCHEDULED MEDICATIONS DUE GIVEN. SAFETY MEASURES IN PLACE, CALL LIGHT WITHIN REACH. WILL CONTINUE TO MONITOR.
--- NOTE | 2017-09-18 11:00 | NUR ---
PT'S SISTER LEVI RETURNED MY CALL FROM YESTERDAY, STATED PT DOESN'T HAVE THE FUNDS RIGHT NOW TO PAY OUT OF POCKET FOR SONIA'S SERVICE YESTERDAY IN REMOVING THE RIGHT PROSTHESIS OUT BUT SHE SAID SOON PT'S MONEY IS ON HIS ACCOUNT SHE WILL BRING THE PAYMENT TO SONIA'S OFFICE IN [place].
--- NOTE | 2017-09-18 12:38 | NUR ---
PATIENT LYING IN BED SLEEPING, AROUSABLE BY VOICE. NO DISTRESS NOTED. DENIES ANY PAIN. SCHEDULED MEDICATIONS DUE GIVEN. SAFETY MEASURES IN PLACE, CALL LIGHT WITHIN REACH. WILL CONTINUE TO MONITOR.
--- NOTE | 2017-09-18 13:15 | NUR ---
PATIENT LYING IN BED SLEEPING, AROUSABLE BY VOICE. NO DISTRESS NOTED. DENIES ANY PAIN. PERFORMED WOUND CARE DRESSING CHANGES PER MD ORDERS. PATIENT TOLERATED WELL. SAFETY MEASURES IN PLACE, CALL LIGHT WITHIN REACH. WILL CONTINUE TO MONITOR.
--- NOTE | 2017-09-18 13:18 | NUR ---
CM NOTE RECEIVED ORDER FOR SNF. PER PATIENT, HE HAS NO PREFERENCE FOR SNF. PER B[facility]E OF [facility] PH# [phone], [facility] CAN TAKE PATIENT WHEN READY FOR DISCHARGE.
--- NOTE | 2017-09-18 15:15 | NUR ---
PATIENT LYING IN BED SLEEPING, AROUSABLE BY VOICE AND SHAKING. PATIENT IS DROWSY DUE TO NORCO GIVEN EARLIER FOR PAIN MEDICATION. SAFETY MEASURES IN PLACE, CALL LIGHT WITHIN REACH. WILL CONTINUE TO MONITOR.
[2017-09-18 16:00] VITALS: BP 128/64
--- NOTE | 2017-09-18 16:24 | NUR ---
PATIENT SITTING IN BED. NO DISTRESS NOTED. DENIES ANY PAIN AT THIS TIME. WANTS TO PUT ON SHIRT BACK ON. ASSISTED PATIENT WITH SHIRT. SAFETY MEASURES IN PLACE, CALL LIGHT WITHIN REACH. WILL CONTINUE TO MONITOR.
--- NOTE | 2017-09-18 18:29 | NUR ---
PATIENT SITTING IN BED WITH DINNER TRAY IN FRONT. NO DISTRESS NOTED. DENIES ANY PAIN. SCHEDULED ANTIBIOTICS DUE GIVEN. SAFETY MEASURES IN PLACE, CALL LIGHT WITHIN REACH. WILL CONTINUE TO MONITOR.
--- NOTE | 2017-09-18 18:42 | NUR ---
PATIENT COMPLAINS OF 5/10 PAIN, MEDICATED WITH TORADOL. SAFETY MEASURES IN PLACE, CALL LIGHT WITHIN REACH. WILL CONTINUE TO MONITOR.
--- NOTE | 2017-09-18 19:33 | NUR ---
GAVE REPORT TO ABSTRACT SEARCHER NURSE FOR CONTINUITY OF CARE. PATIENT IN STABLE CONDITION.
--- NOTE | 2017-09-18 19:35 | NUR ---
RECEIVED REPORT FROM DAY SHIFT RN, PATIENT SITTING IN BED, AWAKE ALERT, ORIENTED X3, NO S/S OF DISTRESS NOTED, RESPIRATION EVEN AND UNLABORED, ON ROOM AIR. IV PATENT AND INTACT, INFUSING NS AT 100ML/HR. PLAN OF CARE DISCUSSED, PATIENT VERBALIZED UNDERSTANDING. CALL LIGHT WITHIN REACH, SAFETY MEASURE ENSURED, WILL CONTINUE TO MONITOR.
[2017-09-18] MEDS: INSULIN LISPRO SLIDING SCALE 100 UNITS/ML VIAL SUBQ PRN (20:54)
--- NOTE | 2017-09-18 22:55 | NUR ---
PATIENT IS SLEEPING, NO S/S OF DISTRESS NOTED, RESPIRATION EVEN AND UNLABORED, CALL LIGHT WITHIN REACH, SAFETY MEASURE ENSURED, WILL CONTINUE TO MONITOR.
[2017-09-19] VITALS: BP 120/53
[2017-09-19] MEDS: PIPER/TAZO 3.375GM/D5W PREMIX 50 ML IV SCH ×3 (00:08→12:53)
[2017-09-19] MEDS: HYDRAGUARD CREAM TP SCH ×2 (00:09→12:54)
[2017-09-19] MEDS: NACL 0.9% 1,000 ML IV SCH ×2 (00:35→11:32)
--- NOTE | 2017-09-19 00:48 | NUR ---
PATIENT IS SLEEPING, NO S/S OF DISTRESS NOTED, RESPIRATION EVEN AND UNLABORED, CALL LIGHT WITHIN REACH, SAFETY MEASURE ENSURED, WILL CONTINUE TO MONITOR.
[2017-09-19] MEDS: KETOROLAC 15 MG/ML VIAL IVP PRN (03:22)
--- NOTE | 2017-09-19 03:25 | NUR ---
PAIN 6/10, PAIN MEDICATION GIVEN ORDERED, NO S/S OF DISTRESS NOTED, RESPIRATION EVEN AND UNLABORED, CALL LIGHT WITHIN REACH, SAFETY MEASURE ENSURED, WILL CONTINUE TO MONITOR.
--- NOTE | 2017-09-19 05:11 | NUR ---
PATIENT ASKED FOR SPONGE BATH, DUE MEDICATION GIVEN, PATIENT TOLERATED WELL. SPONGE BATH PROVIDED REQUESTED. PATIENT RESTING IN BED, NO S/S OF DISTRESS NOTED, RESPIRATION EVEN AND UNLABORED, CALL LIGHT WITHIN REACH, SAFETY MEASURE ENSURED, WILL CONTINUE TO MONITOR.
[2017-09-19] MEDS: BLOOD GLUCOSE MONITORING 1 DEV DEV FS SCH ×2 (06:44→11:52)
[2017-09-19 07:08] LABS: BASOPHILS # (AUTO) 0.1 K/uL (0.00-0.22); EOSINOPHILS # (AUTO) 0.2 K/uL (0-0.4); HEMATOCRIT 30.6 % (36-52); HEMOGLOBIN 10.6 g/dL (12.0-18.0); LYMPHOCYTES # (AUTO) 0.9 K/uL (2.0-11.5); LYMPHOCYTES % (AUTO) 16.4 % (20.5-51.1); MEAN CORPUSCULAR HEMOGLOBIN 34 pg (27-31); MEAN CORPUSCULAR HGB CONC 35 g/dL (33-37); MEAN CORPUSCULAR VOLUME 100 fL (80-94); MONOCYTES # (AUTO) 0.3 K/uL (0.8-1.0); NEUTROPHILS # (AUTO) 4.1 K/uL (1.8-7.7); NEUTROPHILS % (AUTO) 74.6 % (42.2-75.2); PLATELET COUNT (AUTO) 214 K/uL (140-450); RED BLOOD CELL COUNT(AUTO) 3.07 MIL/uL (4.20-6.10); RED CELL DISTRIBUTION WIDTH 12.6 % (11.6-13.7); WHITE BLOOD COUNT (AUTO) 5.6 K/uL (4.8-10.8)
--- NOTE | 2017-09-19 07:10 | NUR ---
ENDORSED PLAN OF CARE TO DAY SHIFT RN, PATIENT RESTING IN BED, IN STABLE CONDITION.
[2017-09-19 07:20] LABS: ANION GAP 14.9 (8-16); CREATININE 2.4 mg/dL (0.7-1.3); POTASSIUM 3.9 mmol/L (3.5-5.1)
[2017-09-19 07:38] LABS: MAGNESIUM 1.9 mg/dL (1.8-2.4); PHOSPHORUS 4.4 mg/dL (2.5-4.9)
[2017-09-19 08:00] VITALS: BP 114/69
[2017-09-19] MEDS: QUEtiapine FUMARATE 100 MG TAB PO SCH (09:01)
[2017-09-19] MEDS: HYDROcodone/APAP 10/325 MG 1 TAB TAB PO PRN (09:01)
[2017-09-19] MEDS: LACTOBACILLUS RHAMNOSUS GG 1 EACH CAP PO SCH (09:01)
[2017-09-19] MEDS: ESCITALOPRAM 20 MG TAB PO SCH (09:01)
[2017-09-19] MEDS: amLODIPine 5 MG TAB PO SCH (09:02)
[2017-09-19] MEDS: HYDROCHLOROTHIAZIDE 25 MG TAB PO SCH (09:02)
--- NOTE | 2017-09-19 09:11 | NUR ---
AM MEDS GIVEN, PT LAURA WELL, PT PLACED ON BEDPAN,
--- NOTE | 2017-09-19 11:15 | NUR ---
SITTING UP IN WHEELCHAIR WITH PHYSICAL THERAPY. BLOOD SUGAR 79, PT DRINKING CRAMBERRY JUICE
--- NOTE | 2017-09-19 12:38 | NUR ---
SPOKE WITH LUIS ALFREDO AT [facility] [phone] AND PT WILL GO TO ROOM 33B. CALLED [facility] [phone] AND SPOKE WITH SILVANA AND SCHEDULED [facility] FOR 3:30PM AND WILL BE A [facility] BILL PT UNABLE TO AFFORD COST AND TRANSPORT NOT COVERED BY MEDICARE.
[2017-09-19] MEDS ORDERED: PIPE1PDS39 IV (12:50)
--- NOTE | 2017-09-19 14:55 | NUR ---
REPORT CALLED TO BO AT [facility], ALL QUIESTIONS ASKED AND ANSWERED, PT TO BE PICKED UP AT 1530, WILL TAKE PHOTO OF WOUNDS, AND GET PT READY.
[2017-09-19 15:02] VITALS: BP 116/60
--- NOTE | 2017-09-19 15:44 | NUR ---
PT LEFT TO [facility] WITH [facility] A TTHIS TIME.
== END 2017-09-19 15:45 | DRG 602 ==
LOC: MED 21:41 → MTU 09-16 02:25
PROVIDERS: ADMIT Family Medicine; ATTEND Family Medicine
DX: L03.115 Cellulitis of right lower limb (principal); N17.0 Acute kidney failure with tubular necrosis; E43 Unspecified severe protein-calorie malnutrition; E11.40 Type 2 diabetes mellitus with diabetic neuropathy, unspecified; D68.59 Other primary thrombophilia; E11.51 Type 2 diabetes mellitus with diabetic peripheral angiopathy without gangrene; E11.622 Type 2 diabetes mellitus with other skin ulcer; L03.90 Cellulitis, unspecified; F31.64 Bipolar disorder, current episode mixed, severe, with psychotic features; L97.829 Non-pressure chronic ulcer of other part of left lower leg with unspecified severity; F31.2 Bipolar disorder, current episode manic severe with psychotic features; W18.39XA Other fall on same level, initial encounter; E87.8 Other disorders of electrolyte and fluid balance, not elsewhere classified; E11.65 Type 2 diabetes mellitus with hyperglycemia; F17.210 Nicotine dependence, cigarettes, uncomplicated; E87.6 Hypokalemia; F10.20 Alcohol dependence, uncomplicated; D53.9 Nutritional anemia, unspecified; L03.116 Cellulitis of left lower limb; I10 Essential (primary) hypertension; S80.812A Abrasion, left lower leg, initial encounter; S80.811A Abrasion, right lower leg, initial encounter; E83.42 Hypomagnesemia; R31.9 Hematuria, unspecified; B96.89 Other specified bacterial agents as the cause of diseases classified elsewhere; D63.8 Anemia in other chronic diseases classified elsewhere; Z89.512 Acquired absence of left leg below knee; Z89.511 Acquired absence of right leg below knee; Z91.19 Patient's noncompliance with other medical treatment and regimen; Z88.1 Allergy status to other antibiotic agents; Z91.040 Latex allergy status; Z79.84 Long term (current) use of oral hypoglycemic drugs; Z79.1 Long term (current) use of non-steroidal anti-inflammatories (NSAID); Z79.899 Other long term (current) drug therapy; S09.90XA Unspecified injury of head, initial encounter; Y93.89 Activity, other specified; Y92.89 Other specified places as the place of occurrence of the external cause; Y99.8 Other external cause status
CPT/HCPCS: 36415; 70450; 71045; 73560; 76536; 76770; 80048; 80053; 80305; 81001; 82150; 82607; 82728; 82746; 82948; 83540; 83605; 83690; 83735; 83880; 84100; 84439; 84443; 84484; 85025; 85045; 85610; 85730; 87040; 87070; 87081; 87086; 87186; 93005; 93970; 96365; 96375; 97110; 97140; 97530; 97542; 99285; J0295; J0360; J1644; J1885; J2270; J2405; J2543; J7030; J7060; Q0092

== ENCOUNTER 2017-09-30 22:46 | Inpatient (IN) | payer OTHER, MEDICAID ==
[~2017-09-30] VITALS: Ht 180.3 cm; Wt 78.5 kg
[~2017-09-30 22:46] MED LIST changes: +PIPE1PDS39 IV
[2017-09-30 22:54] VITALS: BP 147/78
--- NOTE | 2017-09-30 22:56 | NUR ---
PATIENT WHEELED TO BED 12 IN WHEELCHAIR
--- NOTE | 2017-09-30 23:08 | NUR ---
PATIENT PRESENTS TO ED WITH MUSCKULOSKELETAL PAIN, CHIPPED FRONT TEETH, NECK PAIN, FROM STATED MULTIPLE FALLS. PT DENIES N/V/D; SKIN IS PINK/WARM/DRY; AAOX4 WITH EVEN AND STEADY GAIT; LUNGS CLEAR BL; HR EVEN AND REGULAR; PT DENIES ANY FEVER, CP, SOB, OR COUGH AT THIS TIME; PATIENT STATES PAIN OF 10/10 AT THIS TIME; VSS; PATIENT POSITIONED FOR COMFORT; HOB ELEVATED; BEDRAILS UP X2; BED DOWN. ER MD MADE AWARE OF PT STATUS.
[2017-09-30] MEDS ORDERED: NACL 0.9% 1,000 ML IV ONE (23:45)
[2017-10-01] MEDS ORDERED: KETOROLAC 30 MG/ML VIAL IVP ONE
[2017-10-01 00:25] LABS: APPEARANCE,URINE CLEAR (CLEAR); BILIRUBIN,URINE NEGATIVE (NEGATIVE); BLOOD, URINE 1+ (NEGATIVE); COLOR,URINE YELLOW (YELLOW); LEUKOCYTE ESTERASE ,URINE NEGATIVE (NEGATIVE); NITRITE, URINE NEGATIVE (NEGATIVE); UGLUCOSE TRACE (NEGATIVE)
--- NOTE | 2017-10-01 00:33 | NUR ---
PATIENT IN CT
[2017-10-01 00:35] LABS: RBC,URINE 0-5 (RARE) /HPF (0-5); WBC,URINE 0-5 (RARE) /HPF (0-5)
[2017-10-01 00:36] LABS: BARBITURATE, URINE NEG. ng/ml (NEG <=200); BENZODIAZEPINE, URINE NEG. ng/mL (NEG <=200); CANNABINOID, URINE NEG. ng/mL (NEG <=50); COARSE GRANULAR CASTS,URINE 0-1 /LPF (None Seen); COCAINE, URINE NEG. ng/mL (NEG <=300); OPIATE, URINE NEG. ng/mL (NEG <=2000); PHENCYCLIDINE SCREEN,URINE NEG. ng/mL (NEG <=25)
[2017-10-01 00:37] LABS: HYALINE CASTS, URINE 0-3 /LPF (None Seen)
[2017-10-01 00:39] LABS: BASOPHILS # (AUTO) 0.2 K/uL (0.00-0.22); BASOPHILS % (AUTO) 1.7 % (0.0-2.0); EOSINOPHILS # (AUTO) 0.5 K/uL (0-0.4); HEMATOCRIT 32.7 % (36-52); HEMOGLOBIN 10.9 g/dL (12.0-18.0); LYMPHOCYTES # (AUTO) 0.6 K/uL (2.0-11.5); LYMPHOCYTES % (AUTO) 6.5 % (20.5-51.1); MEAN CORPUSCULAR HEMOGLOBIN 33 pg (27-31); MEAN CORPUSCULAR HGB CONC 34 g/dL (33-37); MEAN CORPUSCULAR VOLUME 99 fL (80-94); MONOCYTES # (AUTO) 0.5 K/uL (0.8-1.0); MONOCYTES % (AUTO) 5.4 % (1.7-9.3); NEUTROPHILS # (AUTO) 7.7 K/uL (1.8-7.7); PLATELET COUNT (AUTO) 326 K/uL (140-450); RED BLOOD CELL COUNT(AUTO) 3.31 MIL/uL (4.20-6.10); RED CELL DISTRIBUTION WIDTH 12.8 % (11.6-13.7); WHITE BLOOD COUNT (AUTO) 9.5 K/uL (4.8-10.8)
[2017-10-01 00:56] LABS: NEUTROPHILS % (AUTO) 81.4 % (42.2-75.2)
[2017-10-01 00:58] LABS: PROTHROMBIN TIME 10.3 secs (10.8-13.4)
[2017-10-01 01:02] LABS: ANION GAP 13.9 (8-16); CARBON DIOXIDE 23.5 mmol/L (21-32); CREATININE 2.1 mg/dL (0.7-1.3); POTASSIUM 3.4 mmol/L (3.5-5.1)
[2017-10-01 01:07] LABS: ALBUMIN 2.7 g/dL (3.4-5.0); TOTAL BILIRUBIN 0.2 mg/dL (0.0-1.0)
--- NOTE | 2017-10-01 01:11 | NUR ---
PATIENT BACK FROM CT
[2017-10-01] MEDS ORDERED: NACL 0.9% 1,000 ML IV SCH (03:19)
[2017-10-01] MEDS ORDERED: DEXTROSE 50% 50 ML SYR IVP PRN (03:20)
[2017-10-01] MEDS ORDERED: INSULIN LISPRO SLIDING SCALE 100 UNITS/ML VIAL SUBQ PRN (03:20)
[2017-10-01] MEDS ORDERED: ONDANSETRON 4 MG/2 ML VIAL IVP PRN (03:20)
[2017-10-01] MEDS ORDERED: ASPIRIN 81 MG TAB.CHEW PO ONE (03:20)
[2017-10-01] MEDS ORDERED: ACETAMINOPHEN 325 MG TAB PO PRN (03:20)
[2017-10-01] MEDS ORDERED: MECLIZINE 25 MG TAB PO PRN (03:20)
[2017-10-01] MEDS ORDERED: CLINDAMYCIN 900 MG in DEXTROSE 5% 100 ML IV ONE (03:25)
[2017-10-01] MEDS ORDERED: CLINDAMYCIN 900 MG/6 ML VIAL IV ONE (03:32)
[2017-10-01 03:56] LABS: FREE T4 (FREE THYROXINE) 0.95 ng/dL (0.76-1.46); MAGNESIUM 2.1 mg/dL (1.8-2.4); PHOSPHORUS 3.6 mg/dL (2.5-4.9); THYROID STIMULATING HORMONE 1.92 uIU/mL (0.34-3.74)
[2017-10-01 04:05] VITALS: BP 133/54
--- NOTE | 2017-10-01 04:05 | NUR ---
RECEIVED PT FROM ER, REPORT GIVEN BY HUY PANIAGUA. PT IN STABLE CONDITION. NO S/S OF DISTRESS NOTED. PT AAOX3, ON ROOM AIR. IV TO R AC 18G, PATENT AND INTACT, INFUSING WELL. SKIN WARM AND DRY TO TOUCH. STAGE 2 NOTED ON BACK, SIDE AND BOTTOM OF STUMP ON LLE. PT IS DOUBLE BKA. RR EVEN/UNLABORED. BOWEL SOUNDS PRESENT. INITIAL ASSESSMENT COMPLETED. PLAN OF CARE DISCUSSED WITH PT, BOARD UPDATED, VERBALIZED UNDERSTANDING. ALL SAFETY PRECAUTIONS MET, CALL LIGHT WITHIN REACH, WILL CONTINUE TO MONITOR
--- NOTE | 2017-10-01 04:23 | NUR ---
Endorsed plan of care to Renu Chen RN room 104B.
[2017-10-01] MEDS ORDERED: POTASSIUM CHLORIDE 10 MEQ TABER PO ONE (04:25)
[2017-10-01] MEDS: BLOOD GLUCOSE MONITORING 1 DEV DEV FS SCH ×2 (06:43→11:37)
--- NOTE | 2017-10-01 07:20 | NUR ---
ASSUMED CONTINUITY OF CARE. NO SIGNS AND SYMPTOMS OF ACUTE DISTRESS NOTED. INITIAL ASSESSMENT DONE. KEEP COMFORTABLE ON BED. EXPLAINED DIAGNOSIS, PLAN OF CARE, PAIN MANAGEMENT TEACHING, USE OF CALL LIGHT/BED/TV/BATHROOM. VERBALIZED UNDERSTANDING. FALL PRECAUTION APPLIED. CALL LIGHT WITHIN REACH.
--- NOTE | 2017-10-01 07:20 | NUR ---
BEDSIDE REPORT GIVEN TO DAYSHIFT NURSE FOR CONTINUITY OF CARE, PT IN STABLE CONDITION. NO S/S OF DISTRESS NOTED.
[2017-10-01] MEDS ORDERED: glipiZIDE 5 MG TAB PO SCH (07:30)
[2017-10-01 08:00] VITALS: BP 139/69
[2017-10-01] MEDS ORDERED: amLODIPine 5 MG TAB PO SCH (09:00)
[2017-10-01] MEDS ORDERED: QUEtiapine FUMARATE 100 MG TAB PO SCH (09:00)
[2017-10-01] MEDS ORDERED: HYDROCHLOROTHIAZIDE 25 MG TAB PO SCH (09:00)
[2017-10-01] MEDS ORDERED: ATORVASTATIN 20 MG TAB PO SCH (09:00)
[2017-10-01] MEDS ORDERED: DOCUSATE SODIUM 100 MG GELCAP PO SCH (09:00)
[2017-10-01] MEDS ORDERED: ESCITALOPRAM 20 MG TAB PO SCH (09:00)
[2017-10-01 09:29] LABS: BASOPHILS # (AUTO) 0.1 K/uL (0.00-0.22); EOSINOPHILS # (AUTO) 0.6 K/uL (0-0.4); EOSINOPHILS % (AUTO) 7.5 % (0.0-4.0); HEMATOCRIT 34.4 % (36-52); HEMOGLOBIN 11.4 g/dL (12.0-18.0); LYMPHOCYTES # (AUTO) 1.6 K/uL (2.0-11.5); LYMPHOCYTES % (AUTO) 18.7 % (20.5-51.1); MEAN CORPUSCULAR HEMOGLOBIN 33 pg (27-31); MEAN CORPUSCULAR HGB CONC 33 g/dL (33-37); MEAN CORPUSCULAR VOLUME 98 fL (80-94); MONOCYTES # (AUTO) 0.4 K/uL (0.8-1.0); MONOCYTES % (AUTO) 4.6 % (1.7-9.3); NEUTROPHILS # (AUTO) 5.7 K/uL (1.8-7.7); NEUTROPHILS % (AUTO) 68.2 % (42.2-75.2); PLATELET COUNT (AUTO) 338 K/uL (140-450); RED BLOOD CELL COUNT(AUTO) 3.49 MIL/uL (4.20-6.10); RED CELL DISTRIBUTION WIDTH 12.8 % (11.6-13.7); WHITE BLOOD COUNT (AUTO) 8.4 K/uL (4.8-10.8)
[2017-10-01 09:38] LABS: ANION GAP 13.1 (8-16); CARBON DIOXIDE 22.8 mmol/L (21-32); CREATININE 2.1 mg/dL (0.7-1.3); POTASSIUM 3.9 mmol/L (3.5-5.1)
[2017-10-01 09:42] LABS: PHOSPHORUS 3.9 mg/dL (2.5-4.9)
--- NOTE | 2017-10-01 09:45 | NUR ---
WOUND CARE NURSE EMILY CAME FOR WOUND CARE EVAL AND TREATMENT. WOUND CARE NURSE EMILY EDUCATED PT. ABOUT WOUND CARE. PT. VERBALIZED UNDERSTANDING.
--- NOTE | 2017-10-01 10:08 | NUR ---
WOUND CARE EVALUATION NOTE: REASON FOR EVALUATION: LEFT STUMP WOUND COMPLETE SKIN ASSESSMENT DONE ON THIS 61 Y/O MALE PATIENT ADMITTED TO [facility] WITH CHIEF COMPLAINT OF MULTIPLE FALLS X 1 WEEK. PAST MEDICAL HX INCLUDE DM, HTN, RENAL DISEASE, CHRONIC PRESSURE ULCERS AND OSTEOMYELITIS. SKIN IS WARM AND DRY. MULTIPLE DRY HEALED SCARS NOTED TO BLE. POPLITEAL PULSES PRESENT. PATIENT IS ABLE TO TURN HIMSELF. INFORMED PATIENT NOT TO APPLY PROSTHETICS TO BLE UNTIL WOUNDS HAVE HEALED AND PRIMARY PHYSICIAN GIVE ORDER TO APPLY IT. PATIENT VERBALIZED UNDERSTANDING. INITIAL PLAN OF CARE DISCUSSED WITH PRIMARY RN. INTEGUMENTARY: HEALED OLD SCAR TO THE SACRAL AREA. SKIN INTACT. BILATERAL THIGHS MULTIPLE OLD HEALED SCARS, SKIN INTACT LEFT STUMP PRESSURE ULCER STAGE 2 WOUND BED DRY, PINK IN COLOR 1.0X1.5X0.1CM, DARK BROWN SURROUNDING TISSUE MEASURING 6X5 CM RIGHT STUMP HEALED OLD SCARS, SKIN INTACT RECOMMENDATIONS: -HOME HEALTH FOR WOUND CARE UPON DISCHARGE -DO NOT APPLY PROSTHETICS TO BLE UNTIL WOUNDS ARE HEALED AND PLEASE OBTAIN PERMISSION FROM PRIMARY PHYSICIAN -CLEANSE LEFT STUMP CHRONIC WOUND WITH NS. APPLY SILVASORB GEL WITH ADAPTIC DRESSING AND COVER WITH DRY DRESSING AND SECURE WITH TAPE, Q2DAY AND PRN IF SOILING. -TURN AND REPOSITION Q2H -ASSESS AND MONITOR SKIN CONDITION DURING POSITION CHANGE, PLEASE PAY ATTENTION TO BILATERAL STUMPS,POSTERIOR MEDIAL CONDYLE -KEEP SKIN CLEAN AND DRY AT ALL TIMES. RECOMMENDATIONS DISCUSSED WITH PRIMARY RN PLEASE CONTACT WOUND CARE NURSE FOR ANY QUESTIONS AND CHANGES IN WOUND CONDITION.
--- NOTE | 2017-10-01 10:25 | NUR ---
US TECH CAME FOR PT. PROCEDURE AT BEDSIDE.
--- NOTE | 2017-10-01 10:31 | NUR ---
PATIENT HAS BEEN SCREENED AND CATEGORIZED MODERATE NUTRITION RISK. PATIENT WILL BE SEEN WITHIN 3-5 DAYS OF ADMISSION. 10/03/17 - 10/05/[address]
--- NOTE | 2017-10-01 11:19 | NUR ---
CM NOTE PATIENT INFORMATION RE. HOME HEALTH FAXED TO [facility] / FAX# [phone], ATTN: DELIO #[phone]
--- NOTE | 2017-10-01 11:20 | NUR ---
DIRECTOR BUSINESS INTEGRATION RENATO CAME AND SPOKE TO PT. AT BEDSIDE REGARDING PT. D/C WITH HOME HEALTH SERVICE.
[2017-10-01] MEDS ORDERED: MECL-272 PO (11:43)
[2017-10-01 12:00] VITALS: BP 110/62
--- NOTE | 2017-10-01 12:02 | NUR ---
CALLED PT'S SISTER LEVI ([phone]) REGARDING THE DISCHARGE, STATED SHE WILL BE HERE TO TEST TUBE MAKER PT BETWEEN [id number] HRS. NURSE ASSIGNED NOTIFIED.
--- NOTE | 2017-10-01 12:50 | NUR ---
PT. SISTER -LEIV CAME AND BROUGHT PT. PERSONAL WHEELCHAIR. EXPLAINED TO PT. AND PT. SISTER -LEVI ABOUT MD D/C ORDER, D/C INSTRUCTIONS AND TEACHING, [facility] FOLLOW-UP APPOINTMENT ON OCTOBER 04, 2017 AT 1000, MD D/C PRESCRIPTION LIST EDUCATION, WOUND CARE, DISEASE MANAGEMENT TEACHING, PAIN MANAGEMENT TEACHING, DM TEACHING, DIET. PT. AND PT. -LEVI VERBALIZED UNDERSTANDING.
--- NOTE | 2017-10-01 13:05 | NUR ---
D/C HOME VIA WHEELCHAIR ACCOMPANIED BY PT. SISTER -LEVI. AWAKE, ALERT, AND ORIENTED X4. SPEECH CLEAR. NO C/O PAIN. NO SOB, NOTED. IN STABLE CONDITION. INFORMED CHARGE NURSE MIGUEL A [place].
== END 2017-10-01 13:05 | disposition home health service (06) | DRG 682 ==
LOC: MED 22:46 → MTU 10-01 03:30
PROVIDERS: ADMIT Student in an Organized Health Care Education/Training Program; ATTEND Student in an Organized Health Care Education/Training Program
DX: N17.0 Acute kidney failure with tubular necrosis (principal); E43 Unspecified severe protein-calorie malnutrition; D68.59 Other primary thrombophilia; E11.22 Type 2 diabetes mellitus with diabetic chronic kidney disease; E11.51 Type 2 diabetes mellitus with diabetic peripheral angiopathy without gangrene; E11.40 Type 2 diabetes mellitus with diabetic neuropathy, unspecified; G90.9 Disorder of the autonomic nervous system, unspecified; E11.65 Type 2 diabetes mellitus with hyperglycemia; E86.0 Dehydration; W18.39XA Other fall on same level, initial encounter; E11.69 Type 2 diabetes mellitus with other specified complication; E87.8 Other disorders of electrolyte and fluid balance, not elsewhere classified; D53.9 Nutritional anemia, unspecified; E87.6 Hypokalemia; F31.9 Bipolar disorder, unspecified; F17.210 Nicotine dependence, cigarettes, uncomplicated; M48.02 Spinal stenosis, cervical region; S80.812A Abrasion, left lower leg, initial encounter; S80.811A Abrasion, right lower leg, initial encounter; N18.3 Chronic kidney disease, stage 3 (moderate); I12.9 Hypertensive chronic kidney disease with stage 1 through stage 4 chronic kidney disease, or unspecified chronic kidney disease; D63.8 Anemia in other chronic diseases classified elsewhere; Z89.512 Acquired absence of left leg below knee; Z89.511 Acquired absence of right leg below knee; Z88.1 Allergy status to other antibiotic agents; Z91.040 Latex allergy status; Z79.899 Other long term (current) drug therapy; Z79.84 Long term (current) use of oral hypoglycemic drugs; Z91.19 Patient's noncompliance with other medical treatment and regimen; Y93.89 Activity, other specified; Y92.89 Other specified places as the place of occurrence of the external cause; Y99.8 Other external cause status; Z68.24 Body mass index [BMI] 24.0-24.9, adult
CPT/HCPCS: 36415; 70450; 71045; 72125; 73110; 73130; 76770; 80048; 80053; 80305; 81001; 82948; 83036; 83605; 83735; 83880; 84100; 84439; 84443; 84484; 85025; 85610; 85730; 87040; 87081; 87086; 93005; 93880; 93970; 96365; 96375; 97110; 97140; 99285; J1815; J1885; J3490; J7030; Q0092

== ENCOUNTER 2017-10-09 16:47 | Emergency (ER) | payer OTHER, MEDICAID ==
[~2017-10-09] VITALS: Ht 167.6 cm; Wt 74.8 kg
[~2017-10-09 16:47] MED LIST changes: -CEPH250C16 PO; -LACT10CA PO; +MECL-272 PO; -PIPE1PDS39 IV
[2017-10-09 16:49] VITALS: BP 168/80
--- NOTE | 2017-10-09 17:05 | NUR ---
PT BIBA FOR LEG PAIN TO [facility]
--- NOTE | 2017-10-09 17:08 | NUR ---
61 /M BIBA FROM FIELD FOR LEFT KNEE AMPUTATED WOUND & DRAINAAGE ;PAIN 7/10. PATIENT IS SOUBLE AMPUTEE, HAS PROSTHETIC LIMB ON LEFT.AAOX4, AMB WITH W/C AT THIS TIME. PATIENT STATES PAIN OF 7/10 AT THIS TIME.
--- NOTE | 2017-10-09 18:20 | NUR ---
WOUND DRESSING TO L STUMP BKA, APPIED WITH BACITRACIN, PT TOLERATED PROCEDURE WELL.
[2017-10-09] MEDS ORDERED: BACITRACIN OINT 500 UNITS/GM PKT TP ONE (18:21)
[2017-10-09] MEDS ORDERED: IBUPROFEN 600 MG TAB PO ONE (18:25)
--- NOTE | 2017-10-09 18:32 | NUR ---
PT TAKEN TO [facility] VIA W/C ACCOMPANIED BY [employer].
[2017-10-09 19:18] VITALS: BP 135/61
--- NOTE | 2017-10-09 19:18 | NUR ---
Patient discharged with v/s stable. Written and verbal after care instructions given and explained. Patient alert, oriented and verbalized understanding of instructions. Wheel Chair Assisted with to car. All questions addressed prior to discharge. ID band removed. Patient advised to follow up with PMD. Rx of NAPROSYN & KEFLEX given. Patient educated on indication of medication including possible reaction and side effects. Opportunity to ask questions provided and answered.
== END 2017-10-09 19:19 | disposition home or self-care (01) ==
LOC: MED 16:47
DX: S83.92XA Sprain of unspecified site of left knee, initial encounter (principal); F10.129 Alcohol abuse with intoxication, unspecified; I10 Essential (primary) hypertension; Z90.89 Acquired absence of other organs; Z88.1 Allergy status to other antibiotic agents; Z91.040 Latex allergy status; X58.XXXA Exposure to other specified factors, initial encounter; Y93.89 Activity, other specified; Y92.89 Other specified places as the place of occurrence of the external cause; Y99.8 Other external cause status
CPT/HCPCS: 73560; 99284